=== PATIENT | male | born 1945 | race Caucasian/White ===

== ENCOUNTER 2020-03-26 12:08 | Inpatient (IN) | payer MEDICARE, SELFPAY ==
[2020-03-26] MEDS ORDERED: Piperacillin/Tazobactam 4.5 GM VIAL ONE (12:27)
[2020-03-26 12:31] LABS: #Lymphocytes 0.8 thou/uL (1.20-3.40); #Monocytes 1.6 thou/uL (0.11-0.59); #Neutrophils 13.9 thou/uL (1.40-6.50); %Eosinophils 0.1 % (0.0-10.0); %Lymphocytes 5.1 % (21.0-51.0); %Monocytes 9.7 % (0.0-10.0); %Neutrophils 85.1 % (42.0-75.0); Hemoglobin 14.2 g/dL (14.0-18.0); Mean Corpuscular Volume 93.9 fL (78.0-98.0); Mean Platelet Volume 8.8 fL (7.4-10.4); Platelet Count 245 thou/uL (130-400); RBC Distribution Width 12.6 % (11.5-14.5); Red Blood Cell (RBC) Count 4.74 mill/uL (4.70-6.10); White Blood Cell (WBC) Count 16.4 thou/uL (4.8-10.8)
[2020-03-26 12:39] LABS: INR-International Normal Ratio 1.3; PTT 28.7 sec (22.9-36.1)
--- NOTE | 2020-03-26 12:45 | RAD ---
CHEST 1 VIEW PORTABLE: Date: 03/26/2020 HISTORY: Fever. FINDINGS: Heart size is upper range of normal. Mild increased markings are noted bilaterally with some increase d density in the left retrocardiac region, although this appears to be stable dating back to 04/14/20 19 study. No new confluent pneumonia or overt edema. IMPRESSION: Stable blunting of the left costophrenic angle and increased density in the left retrocardiac region with borderline cardiomegaly without overt acute process. Atherosclerosis of aorta. POS: OFF
[2020-03-26] MEDS ORDERED: Vancomycin 1 GM/200 ML BAG ONE (12:52)
[2020-03-26 13:00] LABS: ALT (SGPT) 59 U/L (8-55); AST (SGOT) 66 U/L (5-34); Acetaminophen Less than 6.0 mcg/mL (10.0-30.0); Albumin 3.3 g/dL (3.4-4.8); Alcohol Less than 10 mg/dL (Less than 10); Alkaline Phosphatase 102 U/L (40-110); Anion Gap 24 mmol/L (10-20); BUN (Urea Nitrogen) 107 mg/dL (8.4-25.7); Bilirubin, Total 0.7 mg/dL (0.2-1.2); CK (CPK) 1658 U/L (30-200); Calc. Creatinine Clearance 0 mL/min (70-130); Calcium 8.8 mg/dL (7.8-10.44); Carbon Dioxide 12 mmol/L (23-31); Chloride 108 mmol/L (98-107); Estimated GFR-MDRD 11; Globulin 4.1 g/dL (2.4-3.5); Glucose 391 mg/dL (83-110); Magnesium 1.7 mg/dL (1.6-2.6); Potassium 5.5 mmol/L (3.5-5.1); Protein, Total 7.4 g/dL (5.8-8.1); Salicylate Less than 8.0 mg/dL (15.0-30.0); Sodium 138 mmol/L (136-145)
[2020-03-26] MEDS ORDERED: Calcium Chloride 1 GM/10 ML Abboject SYRINGE ONE ×2 (13:27→13:30)
[2020-03-26] MEDS ORDERED: Sodium Bicarb 50 MEQ/50 ML Abboject 8.4% SYRINGE ONE (13:29)
[2020-03-26 13:32] LABS: Bacteria/HPF 4+ HPF (None Seen); Bilirubin Negative (Negative); Blood, Urine 2+ (Negative); Clarity Turbid (Clear); Glucose, Urine (Dipstick) 100 mg/dL (Negative); Ketone, Urine Negative (Negative); Leukocyte 500 Leu/uL (Negative); Nitrite Negative (Negative); Protein, Urine (Dipstick) 600 mg/dL (Neg-Trace); Specific Gravity, Urine 1.018 (1.002-1.036); Squamous Epithelial 0-3 HPF (0-3); Urobilinogen Normal mg/dL (Less than 2); WBC/HPF Greater than 50 HPF (0-3)
[2020-03-26 13:46] LABS: Amphetamine Not Detected (NotDetected); Barbiturates Screen Not Detected (NotDetected); Benzodiazepine Screen Not Detected (NotDetected); Cocaine Metabolite Screen Not Detected (NotDetected); Medtox Control Line Valid? VALID (VALID); Medtox Reader # READER 1; Methadone Not Detected (NotDetected); Methamphetamine Not Detected (NotDetected); Opiate Screen Not Detected (NotDetected); Oxycodone Screen Not Detected (NotDetected); Phencyclidine (PCP) Not Detected (NotDetected); THC/Cannabinoid Screen Not Detected (NotDetected); Tricyclic Screen Not Detected (NotDetected)
[2020-03-26 14:07] LABS: CKMB 14.4 ng/mL (0-6.6)
--- NOTE | 2020-03-26 14:13 | CT ---
BRAIN CT WITHOUT IV CONTRAST: History: Unresponsive, altered mental status. FINDINGS: There is some bilateral atrophy and chronic white matter ischemic change. No focal mass or midline sh ift. No intra or extraaxial hemorrhage. IMPRESSION: No acute intracranial process. No mass or bleed. POS: OFF
--- NOTE | 2020-03-26 14:17 | CT ---
CERVICAL SPINE CT SCAN WITHOUT IV CONTRAST: History: Slid out of chair, injury. FINDINGS: Thyroid gland is somewhat nodular and enlarged, larger on the right side, with one fairly densely lianne cified nodule. Extensive multilevel cervical spondylosis, particularly at C5-6 and C6-7. No evidence for acute fracture or facet dislocation. IMPRESSION: Fairly extensive cervical spine spondylosis. Heterogeneous thyroid gland enlargement with some nodula rity including a right sided calcified nodule. POS: OFF
[2020-03-26] MEDS ORDERED: Acetaminophen 650 MG Suppository ONE (14:26)
--- NOTE | 2020-03-26 14:46 | CT ---
ABDOMEN AND PELVIC CT SCAN WITHOUT IV CONTRAST: History: Abdominal pain. Comparison: 04-14-19 FINDINGS: There is fairly marked motion artifact which lowers the sensitivity of this study. Minimal bilateral posterior pleural thickening and pleural based linear and parenchymal changes, although improved from the prior exam of 04-14-19. Status post cholecystectomy. The liver appears unremarkable. Stable approx imately 1.7 cm cyst adjacent to the uncinated process of the pancreas. Spleen is unremarkable. NO tristan dence for significant free intraperitoneal fluid or retroperitoneal hematoma. Multiple bilateral lisbeth l hypodense masses, favored to be cysts, overall stable from the prior exam. Mild gas and fluid diste ntion of the cecum and right colon but no evidence for obstruction. Scattered colonic diverticulosis, particularly in the sigmoid colon. There is the suggestion of some wall thickening of the lower rect um, nonspecific. This could potentially represent some proctitis or, less likely, neoplastic change. Severe lumbar spine spondylosis. IMPRESSION: Evidence for some diffuse rectal wall probable thickening, nonspecific, with inflammatory/infectious/ less likely neoplastic process being considered. Stable probable bilateral renal cysts and stable sma ll cyst adjacent to the uncinated process. Colonic diverticulosis without acute diverticulitis. Sever e lumbar spine spondylosis. Other findings as above. POS: OFF
[2020-03-26 15:00] LABS: SARS-CoV-2 NAA Rapid Test Not Detected (NotDetected)
[2020-03-26] MEDS ORDERED: Enoxaparin Sodium 40 MG/0.4 ML SYRINGE ONE (15:30)
[2020-03-26] MEDS ORDERED: Enoxaparin Sodium 80 MG/0.8 ML SYRINGE ONE (15:30)
[2020-03-26 16:15] LABS: Lactic Acid 2.3 mmol/L (0.5-2.2)
--- NOTE | 2020-03-26 16:58 | PDOC.FPRHP ---
- History of Present Illness Chief Complaint: unresponsive History of Present Illness: 74 y/o M with PMHx DM, HTN and PSHx L STEFANIE brought to ED by EMS after being found down at home. His full medical history is unknown as he has few records at our facility and is unable to answer many questions due to current medical conditions. Per report, he was found by his circular saw operator this morning and appeared to have slumped out of his chair, was covered in feces, and was not responsive. His last known normal was 2 days ago when his circular saw operator dropped off some groceries. He has an mPOA who reported to the ED that he recently left a physical rehab facility; they expressed concerns that he is not appropriately able to care for himself at home. He answers few yes or no questions. Reports pain over his sacrum. Denies any chest pain or SOB. Unable to elicit further ROS due to patient condition. ED Course: Imaging: CT head without hemorrhage, CT neck without acute injury, CXR bilateral small pleural effusions, CT abd/pelvis without contrast thickened bladder and thickened rectum with colitis. EKG without ST changes. Labs: UA 4+ bacteria, Cr 4.98, K 5.5, Trop 1.75, BUN 107 Meds: s/p 30mg/kg NS (approx 4L NS), therapeutic lovenox, vanc, zosyn, tylenol, sodium bicarb, calcium chloride - Allergies/Adverse Reactions Allergies Allergy/AdvReac Type Severity Reaction Status Date / Time No Known Allergies Allergy Unverified 03/26/20 17:53 - History Incomplete history due to mental status. PMHx: DM, HTN PSHx: Nakul WATTS FHx: unknown Social: unknown - Review of Systems ROS unobtainable: due to mental status Respiratory: denies: shortness of breath Cardiovascular: denies: chest pain - Vital signs BP: 187/57 HR: 80 RR: 30 Tmax: 100.7F Pox: 97% on RA Wt: 117 kg - Physical Exam -Constitutional: in mild distress due to pain with diaper change; sleepy but arousable, HEENT: normocephalic and atraumatic -HEENT: unable to follow commands for EOM; R pupil reactive to light, unable to open L eye due to crusted discharge. dry mucous membranes. Neck: supple Heart: RRR, no edema -Heart: 2/6 systolic murmur Lungs: no respiratory distress -Lungs: clear to auscultation from anterior listening posts, unable to assess posteriorly due to patient habitus and mental status Abdomen: soft, bowel sounds present -Abdomen: obese, mild diffuse tenderness -Musculoskeletal: Left BKA, no gross deformities noted -Neurological: no obvious focal deficits although only following some commands -Skin: macular rash over trunk and arms with some punctate areas, c/w bed bugs; sacral wound with clean, dry dressing placed by ED staff -Psychiatric: unable to assess due to current mental status FMR H&P: Results - Labs Result Diagrams: 03/26/20 12:19 03/26/20 19:30 Lab results: WBC 16.4 thou/uL (4.8-10.8) H 03/26/20 12:19 Hgb 14.2 g/dL (14.0-18.0) 03/26/20 12:19 Hct 44.5 % (42.0-52.0) 03/26/20 12:19 MCV 93.9 fL (78.0-98.0) 03/26/20 12:19 Plt Count 245 thou/uL (130-400) 03/26/20 12:19 Neutrophils % 85.1 % (42.0-75.0) H 03/26/20 12:19 Sodium 138 mmol/L (136-145) 03/26/20 12:19 Potassium 5.5 mmol/L (3.5-5.1) H 03/26/20 12:19 Chloride 108 mmol/L (98-107) H 03/26/20 12:19 Carbon Dioxide 12 mmol/L (23-31) L 03/26/20 12:19 BUN 107 mg/dL (8.4-25.7) H 03/26/20 12:19 Creatinine 4.98 mg/dL (0.7-1.3) H 03/26/20 12:19 Glucose 391 mg/dL (83-110) H 03/26/20 12:19 Lactic Acid 2.3 mmol/L (0.5-2.2) H 03/26/20 15:51 Calcium 8.8 mg/dL (7.8-10.44) 03/26/20 12:19 Total Bilirubin 0.7 mg/dL (0.2-1.2) 03/26/20 12:19 AST 66 U/L (5-34) H 03/26/20 12:19 ALT 59 U/L (8-55) H 03/26/20 12:19 Alkaline Phosphatase 102 U/L (40-110) 03/26/20 12:19 Ammonia 37 umol/L (18-72) 03/26/20 12:37 Creatine Kinase 1658 U/L (30-200) H 03/26/20 12:19 CK-MB (CK-2) 14.4 ng/mL (0-6.6) H* 03/26/20 12:19 Serum Total Protein 7.4 g/dL (5.8-8.1) 03/26/20 12: Albumin 3.3 g/dL (3.4-4.8) L 03/26/20 12:19 Lipase 12 U/L (8-78) 03/26/20 12:19 Urine Ketones Negative mg/dL (Negative) 03/26/20 13:08 Urine Blood 2+ (Negative) A 03/26/20 13:08 Urine Nitrite Negative (Negative) 03/26/20 13:08 Ur Leukocyte Esterase 500 Nury/uL (Negative) A 03/26/20 13:08 Urine RBC 4-6 HPF (0-3) A 03/26/20 13:08 Urine WBC Greater than 50 HPF (0-3) A 03/26/20 13:08 Ur Squamous Epith Cells 0-3 HPF (0-3) 03/26/20 13:08 Urine Bacteria 4+ HPF (None Seen) A 03/26/20 13:08 FMR H&P: A/P - Plan Sepsis 2/2 UTI vs infected sacral skin wound WBC 16.4, Tmax 100.7F, HR 80, RR 30, BP 187/57. Initial lactate 4.2. UA with 4+ bacteria, greater than 50 WBC. Severe skin breakdown without ulceration on sacrum. Rapid COVID negative. - s/p fluid resuscitation in the ED with 30 mg/kg NS (approx 4L) - s/p vanc, zosyn in the ED - abx: vanc, cefepime - f/u blood cultures - trending lactate - wound care consulted Rhabdomyolysis Unknown down time, last known normal 2 days ago. CK 1648, K 5.5, Cr 4.98. 2+ blood on UA although only 4-6 RBCs, may have myoglobin in urine. - s/p fluid resuscitation in ED as above - will continue mIVF LR at 120ml/hr - trend CK Altered Mental Status Mostly likely 2/2 sepsis although ischemic stroke is a possibility. No focal deficits noted on exam, although patient not able to fully cooperate. - will treat sepsis as above - permissive hypertension - ordered bedside swallow, NPO until completed - consider MRI in AM Hyperkalemia 5.5 prior to fluid resuscitation. Likely 2/2 rhabdomyolysis. S/P calcium chloride in ED. No peaked T waves on EKG. - repeat BMP now - if K remains elevated after fluids, will need further treatment - continue to monitor daily BMP CA Cr 4.98, baseline appears to be around 1.5 in 04/2019. Likely due to sepsis and rhabdomyolysis. - s/p fluid resuscitation in ED - will re-check BMP now - if Cr not improving, consult nephrology to eval possible need for dialysis - wadsworth placed, strict I&O Elevated Troponin Troponin 1.75. Suspect due to sepsis and decreased clearance with CA. - trend troponin - s/p therapeutic lovenox x 1 in ED - will give ASA Hypertension Hypertensive today. Automatic cuff giving SBP >200 but manual recheck reveals systolic BP in 180s. - permissive HTN due to possible stroke as above Type II DM Poorly controlled. Glucose 391 today. No ketones in urine. Low suspicion for DKA /HHS. - will start moderate SSI - continue to monitor glycemic status Colitis Found down, covered with stool. Unclear if diarrhea, but colitis noted on CT abd /pelvis. - check C diff toxin Bug Bites Diffuse rash on trunk and arms appears consistent with bed bugs - Permethrin cream to trunk and arms tonight Leukocytosis WBC 16.4. Likely 2/2 sepsis. - trend AM CBC Dispo: LOS likely >48 DVT ppx: will start heparin tomorrow, s/p therapeutic lovenox in the ED Diet: NPO. May start heart healthy, carb consistent if swallow passed. IVF: LR @ 120ml/hr FMR H&P: Upper Level - Plan Date/Time: 03/26/20 3746 IElder DO, have evaluated this patient and agree with findings/plan as outlined by wildlife biology internship resident. Pertinent changes/additions are listed here. 74-year-old male presents unresponsive from home He was found by home health today on his floor. They report he was not responsive at that time. Upon arrival to the emergency department he was given 30 mill per kilogram bolus, labs obtained and started on broad-spectrum antibiotics. Currently he is AOx2-3, denies any pain or other complaints. He has b/l injected conjunctiva, with purulence, mild NATY and CTAB, abdomen non- distended but TTP. Mild LE edema, L bka, R great toe with skin breakdown. Diffuse petechial rash. Blood pressures have remained stable or even elevated. CT head within normal limits, Abdomen/pelvis reveals distended bladder and distal colon. Chest x-ray was within normal limits and CT C-spine was normal as well. Laboratory findings significant for an elevated white blood cell count, elevated troponin at 1.7, elevated CK, elevated creatinine, and LA, K was 5.5. EKG reveals type 1 av block, no ST elevation. Primary diagnosis sepsis secondary to UTI. Patient has been adequately fluid resuscitated at this point, will begin appropriate broad-spectrum antibiotics, await blood/urine culture results. Repeat LA, obtain procal and trend. This is likely the cause of his metabolic acidosis. NSTEMI type 2 likely the cause of his elevated troponin. Will discontinue Lovenox and continue to trend trop. Rhabdomyolysis: trend creatinine kinase, begin maintenance fluid Will repeat BMP in four hours to monitor hyperkalemia and CA on CKDIII, renal dose for all medications. Consider nephrology consult if kidney function dose not improve Hypertensive urgency and AMS cause consideration for CVA vs TIA, allow for permissive HTN. Consider MRI in AM. Give ASA. NPO pending BSS Treat hyperglycemia with SSI, consider Lantus in AM with approved diet. Attempt to contact family in regards to his past medical history. Will admit to stroke with tele monitoring. Expected length of stay is greater than 48 hours. Addendum - Attending - Attending Attestation Date/Time: 03/26/202056 I personally evaluated the patient and discussed the management with Dr. Avelar I agree with the History, Examination, Assessment and Plan documented above with any addition or exceptions noted below.
[2020-03-26] MEDS ORDERED: Acetaminophen 325 MG TAB PO PRN (17:54)
[2020-03-26] MEDS ORDERED: Sodium Chloride 0.9% 1,000 ML IV SCH (17:54)
[2020-03-26] MEDS ORDERED: Ondansetron PF 4 MG/2 ML Vial IVP PRN (17:54)
[2020-03-26] MEDS ORDERED: Ondansetron ODT 4 MG TAB SL PRN (17:54)
[2020-03-26] MEDS ORDERED: Permethrin 5% Cream 60 GM TUBE TOP SCH (18:00)
[2020-03-26] MEDS ORDERED: Aspirin 325 MG TAB PO SCH (18:15)
[2020-03-26] MEDS ORDERED: Dextrose 5% in Water 1,000 ML IV PRN (19:21)
[2020-03-26] MEDS ORDERED: Dextrose 50% Abboject 50 ML SYRINGE SLOW IVP PRN (19:21)
[2020-03-26] MEDS ORDERED: Cefepime 2 GM in Sodium Chloride 0.9% 100 ML IVPB SCH (19:30)
[2020-03-26 19:56] LABS: Anion Gap 17 mmol/L (10-20); BUN (Urea Nitrogen) 104 mg/dL (8.4-25.7); Calc. Creatinine Clearance 25 mL/min (70-130); Calcium 8.2 mg/dL (7.8-10.44); Carbon Dioxide 19 mmol/L (23-31); Chloride 111 mmol/L (98-107); Estimated GFR-MDRD 13; Glucose 337 mg/dL (83-110); Potassium 4.9 mmol/L (3.5-5.1); Sodium 142 mmol/L (136-145)
[2020-03-26] MEDS: Lactated Ringer's 1,000 ML IV SCH (20:08)
[2020-03-26 21:38] LABS: Troponin I 3.341 ng/mL (< 0.028)
[2020-03-26 22:48] LABS: CKMB 23.9 ng/mL (0-6.6)
[2020-03-26] MEDS ORDERED: Nitroglycerin 0.4 MG TAB (25 Tab Bottle) SL PRN (22:53)
[2020-03-26] MEDS ORDERED: Heparin 10,000 UNITS/ 10 ML VIAL SLOW IVP SCH (23:00)
[2020-03-26] MEDS ORDERED: Heparin 25,000 units/D5W 500 ML IVPB SCH (23:00)
[2020-03-26 23:14] LABS: Platelet Count 195 thou/uL (130-400)
[2020-03-27 02:32] LABS: Troponin I 4.924 ng/mL (< 0.028)
[2020-03-27] MEDS: Lactated Ringer's 1,000 ML IV SCH ×3 (03:09→13:12)
[2020-03-27] MEDS ORDERED: Aspirin 325 MG TAB PO SCH (03:15)
[2020-03-27] MEDS ORDERED: Atorvastatin Calcium 40 MG TAB PO SCH (03:15)
[2020-03-27] MEDS: Heparin 10,000 UNITS/ 10 ML VIAL SLOW IVP SCH ×3 (03:55→21:10)
[2020-03-27] MEDS: Heparin 25,000 units/D5W 500 ML IVPB SCH ×2 (03:56→22:18)
--- NOTE | 2020-03-27 04:08 | PDOC.BPN ---
<Sandi Keane - Last Filed: 03/27/20 04:04> - Brief Progress Note Called for critical troponins rising 3.34 > 4.9. EKG obtained ~2100 and again at ~00:00 after tele monitors showed possible ST elevation. No ST elevation appreciated, but new T wave inversions in leads I, V2-V6. Patient asx at this time, denies chest pain, appears clinically stable. Will start therapeutic heparin at 0400 since received a dose of th. lovenox yesterday evening. High likelihood patient is having NSTEMI. Gave ASA and started statin. At this time will continue trending troponin and tele monitoring. Consider cardiology consult in AM; however, unlikely to undergo cardiac catheterization while septic. Will continue therapeutic anticoagulation, nitro for chest pain. <Anuj Hooper - Last Filed: 03/27/20 07:56> - Brief Progress Note EKG with new BBB and prolonging Qtc noted
[2020-03-27 05:24] LABS: Anion Gap 16 mmol/L (10-20); BUN (Urea Nitrogen) 99 mg/dL (8.4-25.7); CK (CPK) 1180 U/L (30-200); Calc. Creatinine Clearance 30 mL/min (70-130); Calcium 8.3 mg/dL (7.8-10.44); Carbon Dioxide 20 mmol/L (23-31); Chloride 114 mmol/L (98-107); Estimated GFR-MDRD 16; Glucose 260 mg/dL (83-110); Potassium 4.8 mmol/L (3.5-5.1); Sodium 145 mmol/L (136-145)
[2020-03-27 05:48] LABS: Band 11 % (5-11); Hemoglobin 13.3 g/dL (14.0-18.0); Lymphocytes 9 % (21-51); MDiff Complete? YES; Mean Corpuscular Hemoglobin 28.8 pg (27.0-31.0); Mean Corpuscular Volume 92.9 fL (78.0-98.0); Mean Platelet Volume 8.2 fL (7.4-10.4); Monocytes 12 % (0-10); Neutrophil 67 % (42-75); Platelet Count 205 thou/uL (130-400); Platelet Morphology Comment Appears Adequate; RBC Distribution Width 12.5 % (11.5-14.5); Reactive Lymphocytes 1 % (0-10); Red Blood Cell (RBC) Count 4.62 mill/uL (4.70-6.10); White Blood Cell (WBC) Count 20.5 thou/uL (4.8-10.8)
--- NOTE | 2020-03-27 06:31 | PDOC.FM ---
- Subjective Subjective: Overnight troponins continued to rise. Patient has continued to deny any chest pain throughout this admission, including this AM. He reports he is mildly SOB. Denies any diaphoresis. This morning, he is completely awake and able to answer questions, which is a big change from yesterday. He does not remember having any kind of fall at home. He reports that he was in an assisted living facility approximately 2 months ago, but he has since returned to home with the help of his friend Gertrude who is his rn burn. He is complaining of back pain this morning, which is chronic and unchanged. He does not have any other complaints this morning, other than detailed above. He also tells me that he sees a pressroom worker at [facility] who he last saw approximately 2 weeks ago and who wanted him to f/u for a AWA soon. - Objective Vital Signs & Weight: Vital Signs (12 hours) Temp Pulse Resp BP Pulse Ox 03/27/20 03:01 98.0 F 68 20 151/78 H 99 03/27/20 01:21 100 03/26/20 23:21 97.6 F 64 17 182/74 H 03/26/20 20:00 100 03/26/20 19:21 98.7 F 65 20 158/70 H 100 Weight Weight 118.841 kg Result Diagrams: 03/27/20 04:50 03/27/20 04:50 EKG Reviewed by me: Yes (prolonged QTc, RBBB, T wave inversions) Phys Exam - Physical Examination Constitutional: NAD HEENT: PERRLA tacky mucous membranes Neck: supple Respiratory: no wheezing, no rhonchi rales bilateral bases Cardiovascular: RRR 2/6 systolic murmur Gastrointestinal: soft, no distention, positive bowel sounds mild tenderness RLQ, no rebound tenderness, negative Rovsing Musculoskeletal: no edema pulses present but very difficult to palpate Neurological: non-focal, moves all 4 limbs Psychiatric: normal affect, A&O x 3 Deviation from normal: rash c/w diffuse bug bites unchanged Dx/Plan - Plan Plan: Sepsis 2/2 UTI vs infected sacral skin wound WBC 16.4, Tmax 100.7F, HR 80, RR 30, BP 187/57 on admission. Initial lactate 4.2. UA with 4+ bacteria, greater than 50 WBC. Severe skin breakdown without ulceration on sacrum. Rapid COVID negative. Lactate now trending down. Intermediate procalcitonin stable at 0.6. - Clinically improving today - s/p fluid resuscitation in the ED with 30 mg/kg NS (approx 4L) - discontinued vanc and cefepime today; after seeing wound photos, low suspicion for sepsis due to MRSA and favor urinary source; will start rocephin today for UTI complicated by sepsis - f/u blood cultures - f/u urine cx, will de-escalate to oral abx pending results - wound care consulted Elevated Troponin: NSTEMI vs Sepsis vs Decreased Renal Troponin elevated at 1.75 on admission; was suspected most likely due to sepsis and decreased renal clearance, therapeutic lovenox administered in ED and ASA given on admission to the floor; continued to trend troponin overnight and continued to rise to 3.34 and then 4.92. He developed EKG changes including T wave inversions, RBBB, prolonged QTc, although he continues to deny chest pain. He was given ASA and started on therapeutic heparin and statin. - trend troponin - continue therapeutic heparin, statin, asa - cardiology, Dr. Trevino, consulted this AM, appreciate recs Rhabdomyolysis Unknown down time, last known normal 2 days ago. CK 1648, K 5.5, Cr 4.98. 2+ blood on UA although only 4-6 RBCs, may have myoglobin in urine upon admission. - s/p fluid resuscitation in ED as above - increased IVF to 160ml/hr for more aggressive tx of rhabdo; few rales, no increased O2 requirement, will monitor respiratory status closely and adjust IVF as needed - CK downtrending, will continue to monitor Altered Mental Status Mostly likely 2/2 sepsis. Initial consideration for ischemic stroke but patient is alert and non-focal on exam today. - will treat sepsis as above - no need for extensive stroke work up - bedside swallow still pending Hyperkalemia 5.5 prior to fluid resuscitation. Likely 2/2 rhabdomyolysis. S/P calcium chloride in ED. No peaked T waves on EKG. K corrected with IVF resuscitation, CaCl. - continue to monitor daily BMP CA Cr 4.98, baseline appears to be around 1.5 in 04/2019. Likely due to sepsis and rhabdomyolysis. Improving with fluid resuscitation. - s/p fluid resuscitation in ED - making urine, ok to DC wadsworth today - continue strict I/O Hypertension Hypertensive today. Automatic cuff giving SBP >200 but manual recheck reveals systolic BP in 180s. Initially permissive hypertension due to possible ischemic stroke. - stable with SBP in 150s today - will add anti-hypertensives when home medications are reconciled Type II DM Poorly controlled. Glucose 391 on admission No ketones in urine. Low suspicion for DKA/HHS. - will start moderate SSI - continue to monitor glycemic status - reconcile home meds, will likely start basal insulin Colitis Found down, covered with stool. Unclear if diarrhea, but colitis noted on CT abd /pelvis. - C diff Ag positive although toxin still pending - if C diff toxin positive, keep enteric precautions and tx with oral vancomycin - if C diff toxin negative, no need for tx and may DC enteric precautions Bug Bites Diffuse rash on trunk and arms appears consistent with bed bugs - Permethrin cream to trunk and arms tonight Leukocytosis WBC 16.4. Likely 2/2 sepsis. - WBC increased to 20 - trend AM CBC Dispo: LOS likely >48 DVT ppx: therapeutic heparin Diet: NPO. May start heart healthy, carb consistent if swallow passed. IVF: LR @ 160ml/hr Addendum - Attending - Attending Attestation Date/Time: 03/27/20 1222 I personally evaluated the patient and discussed the management with Dr. Avelar I agree with the History, Examination, Assessment and Plan documented above with any addition or exceptions noted below. Patient much more alert and responsive today relates additional history he was [facility] he can not eloborate further. RFT improved EKG with new RBBB and troponins up with QTc prolonged now on EKG. Cardiology has been consulted and patient remains on therapeutic heparin. Continue hydration given sepsis CA on prexisting CKD and rhadbomylosis. C dificile toxin pending CT with Colitis continue contact precautions and will deescalate ABX pending culture results. PO vancomycin 125 qid x 10 days pending C DIF toxin report.
[2020-03-27] MEDS ORDERED: Heparin 5,000 UNITS/ML VIAL SC SCH (09:00)
[2020-03-27] MEDS ORDERED: Prevnar 13-Val Conj/PF 0.5 ML SYRINGE IM ONE (09:00)
[2020-03-27 09:02] LABS: Troponin I 4.997 ng/mL (< 0.028)
[2020-03-27] MEDS: cefTRIAXone\\ROCEPHIN 1 GM in Sodium Chloride 0.9% 100 ML IVPB SCH (09:19)
[2020-03-27] MEDS ORDERED: Vancomycin 1.5 GRAM/300 ML BAG 1.5 GM in Premix Bag 1 BAG IVPB SCH (13:00)
[2020-03-27 13:24] LABS: Vancomycin, Random 7.1 ug/mL (See Comment)
--- NOTE | 2020-03-27 14:27 | CON ---
DATE OF CONSULTATION: REASON FOR CONSULTATION: Elevated troponin, abnormal EKG. PRIMARY SENIOR SUPPORT ENGINEER: Dr. Yordy Flores. Please note, Mr. Vines does have two medical record numbers. HISTORY OF PRESENT ILLNESS: Mr. Vines is a 74-year-old gentleman, who recently was found down. He states it is unknown why he was down. He states he was down for up to 2 days. He initially had mental status changes, but now appears to be more lucid. No chest pain, pressure, or other associated symptoms. His troponin is slightly elevated. Initially, he was found to have normal sinus rhythm with right bundle-branch block. His followup EKG this morning did show inverted T-waves. His creatinine also continues to be elevated. He is currently pain free. No chest pain or pressure noted. PAST MEDICAL HISTORY: Mild to moderate aortic stenosis, moderate aortic insufficiency, diabetes mellitus, PVD, status post left BKA, hyperlipidemia, hypertension, previous tobacco abuse, hypothyroidism, ileus, chronic kidney disease. ALLERGIES: QUINAPRIL. SOCIAL HISTORY: No current tobacco or alcohol use. Currently lives alone. REVIEW OF SYSTEMS: A 10-point review of systems is reviewed as above, otherwise negative. HOME MEDICATIONS: Currently unknown. PHYSICAL EXAMINATION: GENERAL: Patient is a pleasant male, who is in no acute distress. The patient appears their stated age. VITAL SIGNS: Blood pressure 151/78, pulse 68, temperature 98. NEUROLOGIC: The patient is alert and oriented x3 with no focal neurologic deficits. HEENT: Sclerae without icterus. Mouth has moist mucous membranes with normal pallor. NECK: No JVD. Carotid upstroke brisk. No bruits bilaterally. LUNGS: Clear to auscultation with unlabored respirations. BACK: No scoliosis or kyphosis. CARDIAC: Regular rate and rhythm with 2/6 systolic ejection murmur heard best at the left lower sternal border. ABDOMEN: Soft, nontender, nondistended. No peritoneal signs present. No hepatosplenomegaly. No abnormal striae. EXTREMITIES: Left BKA. SKIN: No gross abnormalities. PERTINENT LABORATORY DATA: Hemoglobin 13.3, hematocrit 42.9, white blood cell count 20.5. Creatinine 3.66, which is down from 4.4. Peak troponin 4.99 and appears to have stabilized. CK of 1180. EKG as above. IMPRESSION: 1. Elevated troponin. 2. Abnormal EKG. 3. Mild to moderate aortic stenosis. 4. Peripheral vascular disease. RECOMMENDATIONS: Mr. Vines certainly has had dynamic changes noted while in the hospital. At this point, we will continue with conservative therapy. He has no current symptoms suggesting angina. No significant shortness of breath or chest pain or pressure. We would recommend an echo to reassess his aortic valve. He was last seen by Dr. Yordy Flores a year and a half ago, where he did have [id number] aortic stenosis and moderate aortic insufficiency. If his valve has worsened, this maybe the precipitating cause to his possible syncopal event. May need to have disposition from a coronary standpoint prior to discharge. We would like to continue to see his creatinine improved. We will continue with IV fluids. Job ID: [id number]
[2020-03-27] MEDS: Vancomycin HCl 25 MG/ML Oral PO SCH (19:26)
[2020-03-27] MEDS ORDERED: Cefepime 1 GM in Sodium Chloride 0.9% 100 ML IVPB SCH (20:00)
[2020-03-27] MEDS: Atorvastatin Calcium 40 MG TAB PO SCH (21:16)
[2020-03-27] MEDS: Carvedilol 3.125 MG TAB PO SCH (21:16)
[2020-03-27] MEDS: HumaLOG 300 UNITS/3 ML VIAL SC PRN (21:17)
[2020-03-28] MEDS: Vancomycin HCl 25 MG/ML Oral PO SCH ×4 (00:17→18:38)
[2020-03-28] MEDS ORDERED: Acetaminophen 325 MG TAB PO PRN (01:04)
[2020-03-28 02:30] LABS: PTT 154.1 sec (22.9-36.1)
[2020-03-28] MEDS ORDERED: Acetaminophen 500 MG TAB PO SCH (02:30)
[2020-03-28 04:46] LABS: #Eosinphils 0.4 thou/uL (0.0-0.7); #Lymphocytes 2.4 thou/uL (1.20-3.40); #Monocytes 1.9 thou/uL (0.11-0.59); %Basophils 0.3 % (0.0-1.0); %Eosinophils 2.6 % (0.0-10.0); %Lymphocytes 16.2 % (21.0-51.0); %Monocytes 12.8 % (0.0-10.0); %Neutrophils 68.2 % (42.0-75.0); Hemoglobin 11.4 g/dL (14.0-18.0); Mean Corpuscular HGB CONC 31.9 g/dL (32.0-36.0); Mean Corpuscular Hemoglobin 29.5 pg (27.0-31.0); Mean Corpuscular Volume 92.6 fL (78.0-98.0); Mean Platelet Volume 8.5 fL (7.4-10.4); Platelet Count 184 thou/uL (130-400); RBC Distribution Width 12.2 % (11.5-14.5); Red Blood Cell (RBC) Count 3.87 mill/uL (4.70-6.10); White Blood Cell (WBC) Count 14.7 thou/uL (4.8-10.8)
[2020-03-28 05:28] LABS: ALT (SGPT) 32 U/L (8-55); AST (SGOT) 41 U/L (5-34); Albumin 2.2 g/dL (3.4-4.8); Alkaline Phosphatase 68 U/L (40-110); Anion Gap 14 mmol/L (10-20); BUN (Urea Nitrogen) 83 mg/dL (8.4-25.7); Bilirubin, Total 0.5 mg/dL (0.2-1.2); Calc. Creatinine Clearance 50 mL/min (70-130); Calcium 7.8 mg/dL (7.8-10.44); Carbon Dioxide 21 mmol/L (23-31); Chloride 109 mmol/L (98-107); Estimated GFR-MDRD 29; Glucose 170 mg/dL (83-110); Potassium 4.5 mmol/L (3.5-5.1); Protein, Total 5.2 g/dL (5.8-8.1); Sodium 139 mmol/L (136-145)
[2020-03-28] MEDS: Lactated Ringer's 1,000 ML IV SCH ×3 (08:22→12:02)
[2020-03-28] MEDS: Carvedilol 3.125 MG TAB PO SCH ×2 (08:24→20:42)
--- NOTE | 2020-03-28 09:09 | PDOC.FM ---
- Subjective Subjective: No acute overnight events. Reports feeling much better, continues to deny any chest pain or SOB. Would like to know when he can go home. Discussed that he will likely need placement before he can home and he is amenable to this. No new complaints. Continues to have back pain. - Objective Vital Signs & Weight: Vital Signs (12 hours) Temp Pulse Resp BP Pulse Ox 03/28/20 04:05 97.2 F L 52 L 20 156/66 H 100 03/28/20 00:58 100 Weight Weight 118.841 kg I&O: 03/27/20 03/28/20 03/29/20 06:59 06:59 06:59 Intake Total 680 Output Total 1500 Balance -820 Result Diagrams: 03/28/20 04:24 03/28/20 04:24 EKG Reviewed by me: Yes (tele: 1 deg AVB, BBB, rate 50-60, prolonged QT, few PVCs, one 2s pause) Phys Exam - Physical Examination Constitutional: NAD HEENT: moist MMs Respiratory: no wheezing, no rhonchi few rales bilateral bases regular rhythm, bradycardia, systolic murmur Gastrointestinal: soft, non-tender, positive bowel sounds hyperactive bowel sounds Musculoskeletal: no edema pulses present but very difficult to palpate Neurological: non-focal, moves all 4 limbs Psychiatric: normal affect, A&O x 3 Deviation from normal: diffuse macular rash on trunk, arms is improving Dx/Plan - Plan Plan: Sepsis 2/2 most likely UTI vs C diff colitis WBC 16.4, Tmax 100.7F, HR 80, RR 30, BP 187/57 on admission. Initial lactate 4.2. UA with 4+ bacteria, greater than 50 WBC. Severe skin breakdown without ulceration on sacrum. Rapid COVID negative. Lactate now trending down. Intermediate procalcitonin stable at 0.6. - Clinically improving today - s/p fluid resuscitation in the ED with 30 mg/kg NS (approx 4L) - discontinued vanc and cefepime; after seeing wound photos, low suspicion for sepsis due to MRSA and favor urinary source; started rocephin 03/27 for UTI complicated by sepsis - f/u blood cultures -- NGTD - urine cx with proteus mirabilus resistant to fluorquionlones and bactrim; will switch to PO abx today, omnicef - wound care consulted for skin wound Hypothermia 97.2 F this AM, most likely 2/2 sepsis. - continue to monitor - tx sepsis as above C difficile colitis Possibly a contributing factor to his sepsis which is now improving. Positive toxin result on 03/27. - started on oral vancomycin 125 mg QID, will need 10 total days of PO vanc - enteric precautions Bradycardia Noted on tele overnight and exam this AM. - continue to monitor - unclear if related to elevated troponins - cardiology following, appreciate any recommendations Elevated Troponin: NSTEMI vs Sepsis vs Decreased Renal Troponin elevated at 1.75 on admission; was suspected most likely due to sepsis and decreased renal clearance, therapeutic lovenox administered in ED and ASA given on admission to the floor; continued to trend troponin overnight and continued to rise to 3.34 and then 4.92. He developed EKG changes including T wave inversions, RBBB, prolonged QTc, although he continues to deny chest pain. He was given ASA and started on therapeutic heparin and statin. - trend troponin - continue therapeutic heparin, statin, asa - cardiology, Dr. Trevino, consulted this AM, appreciate recs -- conservative management at this time Rhabdomyolysis Unknown down time, last known normal 2 days ago. CK 1648, K 5.5, Cr 4.98. 2+ blood on UA although only 4-6 RBCs, may have myoglobin in urine upon admission. - s/p fluid resuscitation in ED as above - yesterday increased LR to 160ml/hr for aggressive treatment but given improving CK to 300s and continued improvement of Cr will decrease to 120ml/hr to avoid fluid overload - CK downtrending, will continue to monitor Altered Mental Status, resolved Mostly likely 2/2 sepsis. Initial consideration for ischemic stroke but patient is alert and non-focal on exam today. - will treat sepsis as above - no need for extensive stroke work up Hyperkalemia 5.5 prior to fluid resuscitation. Likely 2/2 rhabdomyolysis. S/P calcium chloride in ED. No peaked T waves on EKG. K corrected with IVF resuscitation, CaCl. - continue to monitor daily BMP CA Cr 4.98, baseline appears to be around 1.5 in 04/2019. Likely due to sepsis and rhabdomyolysis. Improving with fluid resuscitation. - s/p fluid resuscitation in ED - continue strict I/O - Cr continues to improve, monitor BMP daily Hypertension Hypertensive today. Automatic cuff giving SBP >200 but manual recheck reveals systolic BP in 180s. Initially permissive hypertension due to possible ischemic stroke. - stable with SBP in 150s today - will add anti-hypertensives when home medications are reconciled Type II DM Poorly controlled. Glucose 391 on admission No ketones in urine. Low suspicion for DKA/HHS. - will start moderate SSI - continue to monitor glycemic status - reconcile home meds, will likely start basal insulin Bug Bites Diffuse rash on trunk and arms appears consistent with bed bugs vs scabies - Permethrin cream to trunk and arms tonight Leukocytosis, improving Initial WBC 16.4. Likely 2/2 sepsis. - down trending - trend AM CBC Dispo: LOS likely >48 DVT ppx: therapeutic heparin Diet: Heart healthy, carb consistent IVF: LR @ 120ml/hr Will likely need placement upon discharge. Addendum - Attending - Attending Attestation Date/Time: 03/28/20 1630 I personally evaluated the patient and discussed the management with the team. I agree with the History, Examination, Assessment and Plan documented above with any addition or exceptions noted below. Improved and in good spirits. Still with bilateral CVAT, no peritoneal signs or sig abd TTP. Continue vanc and rocphin. Hopeful omnicef tomorrow.
[2020-03-28] MEDS ORDERED: Lactated Ringer's 1,000 ML IV SCH (09:44)
[2020-03-28] MEDS: HumaLOG 300 UNITS/3 ML VIAL SC PRN ×2 (11:34→17:38)
[2020-03-28] MEDS: cefTRIAXone\\ROCEPHIN 1 GM in Sodium Chloride 0.9% 100 ML IVPB SCH (11:37)
[2020-03-28] MEDS: Acetaminophen 325 MG TAB PO PRN ×2 (11:37→21:49)
--- NOTE | 2020-03-28 17:07 | EKG ---
Test Reason : STAT Blood Pressure : / mmHG Vent. Rate : 063 BPM Atrial Rate : 063 BPM P-R Int : 230 ms QRS Dur : 154 ms QT Int : 530 ms P-R-T Axes : 030 029 214 degrees QTc Int : 542 ms Sinus rhythm with 1st degree A-V block Non-specific intra-ventricular conduction block joyce-lateral infarct unkown age Cannot rule out Inferior infarct , age undetermined Abnormal ECG No previous ECGs available Confirmed by DR. Fantasma BACA (3) on 03/28/2020 5:06:36 PM Referred By: CATERINA Confirmed By:DR. Fantasma BACA
--- NOTE | 2020-03-28 17:08 | EKG ---
Test Reason : STAT Blood Pressure : / mmHG Vent. Rate : 064 BPM Atrial Rate : 064 BPM P-R Int : 230 ms QRS Dur : 148 ms QT Int : 512 ms P-R-T Axes : 261 -65 173 degrees QTc Int : 528 ms Unusual P axis, possible ectopic atrial rhythm Right bundle branch block Left anterior fascicular block Bifascicular block Minimal voltage criteria for LVH, may be normal variant joyce- Lateral infarct (cited on or before 26-MAR-2020) T wave abnormality, consider inferior ischemia Abnormal ECG When compared with ECG of 26-MAR-2020 21:51, (Unconfirmed) Ectopic atrial rhythm has replaced Sinus rhythm (RBBB and left anterior fascicular block) has replaced Non-specific intra-ventricular conduction bloc k Confirmed by DR. Fantasma BACA (3) on 03/28/2020 5:07:48 PM Referred By: JOCELYN SPANN Confirmed By:DR. Fantasma BACA
[2020-03-28] MEDS: Atorvastatin Calcium 40 MG TAB PO SCH (20:42)
[2020-03-28] MEDS ORDERED: traMADol HCl 50 MG TAB PO SCH (22:15)
[2020-03-28 23:00] LABS: Hemoglobin 12.9 g/dL (14.0-18.0); Platelet Count 194 thou/uL (130-400)
[2020-03-29] MEDS: Vancomycin HCl 25 MG/ML Oral PO SCH ×4 (00:17→18:04)
[2020-03-29] MEDS: Heparin 25,000 units/D5W 500 ML IVPB SCH (00:20)
[2020-03-29 00:45] LABS: #Basophils 0.1 thou/uL (0.0-0.2); #Eosinphils 0.5 thou/uL (0.0-0.7); #Lymphocytes 2.2 thou/uL (1.20-3.40); #Monocytes 1.7 thou/uL (0.11-0.59); #Neutrophils 8.8 thou/uL (1.40-6.50); %Basophils 0.6 % (0.0-1.0); %Eosinophils 4.1 % (0.0-10.0); %Lymphocytes 16.7 % (21.0-51.0); %Monocytes 12.7 % (0.0-10.0); %Neutrophils 65.9 % (42.0-75.0); Hemoglobin 12.9 g/dL (14.0-18.0); Mean Corpuscular HGB CONC 32.2 g/dL (32.0-36.0); Mean Corpuscular Hemoglobin 29.8 pg (27.0-31.0); Mean Corpuscular Volume 92.7 fL (78.0-98.0); Mean Platelet Volume 8.6 fL (7.4-10.4); Platelet Count 187 thou/uL (130-400); RBC Distribution Width 12.3 % (11.5-14.5); Red Blood Cell (RBC) Count 4.32 mill/uL (4.70-6.10); White Blood Cell (WBC) Count 13.4 thou/uL (4.8-10.8)
[2020-03-29] MEDS: Heparin 10,000 UNITS/ 10 ML VIAL SLOW IVP SCH ×2 (01:16→18:04)
[2020-03-29 02:22] LABS: ALT (SGPT) 29 U/L (8-55); AST (SGOT) 34 U/L (5-34); Albumin 2.3 g/dL (3.4-4.8); Alkaline Phosphatase 75 U/L (40-110); Anion Gap 13 mmol/L (10-20); BUN (Urea Nitrogen) 63 mg/dL (8.4-25.7); CK (CPK) 233 U/L (30-200); Calc. Creatinine Clearance 62 mL/min (70-130); Carbon Dioxide 20 mmol/L (23-31); Chloride 109 mmol/L (98-107); Estimated GFR-MDRD 38; Globulin 3.2 g/dL (2.4-3.5); Glucose 210 mg/dL (83-110); Potassium 4.2 mmol/L (3.5-5.1); Protein, Total 5.5 g/dL (5.8-8.1); Sodium 138 mmol/L (136-145)
[2020-03-29 03:39] LABS: Bilirubin, Total 0.2 mg/dL (0.2-1.2)
[2020-03-29] MEDS: HumaLOG 300 UNITS/3 ML VIAL SC PRN ×3 (06:38→16:42)
[2020-03-29 06:47] LABS: PTT 127.2 sec (22.9-36.1)
--- NOTE | 2020-03-29 08:57 | PDOC.FM ---
Addendum entered and electronically signed by Ann Marie Avelar DO 03/29/20 12:51: Yesterday our team was informed that Mr. Vines has [employer] insurance, and would need to be transferred to a [facility] facility. We called the transfer center in the morning on 03/28/20 to initiate this transfer, requesting a telemetry bed due to current cardiac problems. Per the transfer center, this request was denied by the [facility] in [place] at 20:30 on 03/28/20. Original Note: - Subjective Subjective: 2 pauses on tele overnight, has been bradycardic. feeling tired this AM. otherwise no new complaints. no sob. no chest pain. - Objective Vital Signs & Weight: Vital Signs (12 hours) Temp Pulse Resp BP Pulse Ox 03/29/20 03:38 98.2 F 50 L 15 125/58 L 96 03/29/20 00:00 176/74 H Weight Admit Weight 118.841 kg Weight 125.146 kg I&O: 03/28/20 03/29/20 03/30/20 06:59 06:59 06:59 Intake Total 680 2136.7 Output Total 1500 Balance -820 2136.7 Result Diagrams: 03/29/20 00:36 03/29/20 00:36 Phys Exam - Physical Examination Constitutional: NAD appears fatigued HEENT: moist MMs Neck: supple Respiratory: no wheezing, no rales, no rhonchi, clear to auscultation bilateral bradycardia, systolic murmur Gastrointestinal: soft, non-tender, no distention, positive bowel sounds Musculoskeletal: no edema pulses difficult to palpate Neurological: non-focal, moves all 4 limbs CN 2-12 grossly intact Psychiatric: A&O x 3 Skin: no rash Dx/Plan - Plan Plan: Sepsis 2/2 most likely UTI vs C diff colitis WBC 16.4, Tmax 100.7F, HR 80, RR 30, BP 187/57 on admission. Initial lactate 4.2. UA with 4+ bacteria, greater than 50 WBC. Severe skin breakdown without ulceration on sacrum. Rapid COVID negative. Lactate now trending down. Intermediate procalcitonin stable at 0.6. - Clinically improving today - s/p fluid resuscitation in the ED with 30 mg/kg NS (approx 4L) - discontinued vanc and cefepime; after seeing wound photos, low suspicion for sepsis due to MRSA and favor urinary source; started rocephin 03/27 for UTI complicated by sepsis - f/u blood cultures -- NGTD - urine cx with proteus mirabilus resistant to fluorquionlones and bactrim; will switch to PO abx today, omnicef - wound care consulted for skin wound Bradycardia Noted on tele overnight and exam this AM. Now symptomatic with fatigue. - continue to monitor - unclear if related to elevated troponins - cardiology following, appreciate any recommendations - held BB this AM Back pain Unknown etiology, no apparent flank tenderness. - will check XR today to r/o compression fracture due to possible fall prior to admission - will give one time dose morphine prior to imaging so patient is able to tolerate Hypothermia 97.2 F this AM, most likely 2/2 sepsis. - continue to monitor - tx sepsis as above C difficile colitis Possibly a contributing factor to his sepsis which is now improving. Positive toxin result on 03/27. - started on oral vancomycin 125 mg QID, will need 10 total days of PO vanc - enteric precautions Elevated Troponin: NSTEMI vs Sepsis vs Decreased Renal Troponin elevated at 1.75 on admission; was suspected most likely due to sepsis and decreased renal clearance, therapeutic lovenox administered in ED and ASA given on admission to the floor; continued to trend troponin overnight and continued to rise to 3.34 and then 4.92. He developed EKG changes including T wave inversions, RBBB, prolonged QTc, although he continues to deny chest pain. He was given ASA and started on therapeutic heparin and statin. - trend troponin - continue therapeutic heparin, statin, asa - cardiology, Dr. Trevino, consulted this AM, appreciate recs -- conservative management at this time Rhabdomyolysis Unknown down time, last known normal 2 days ago. CK 1648, K 5.5, Cr 4.98. 2+ blood on UA although only 4-6 RBCs, may have myoglobin in urine upon admission. - s/p fluid resuscitation in ED as above - yesterday increased LR to 160ml/hr for aggressive treatment but given improving CK to 300s and continued improvement of Cr will decrease to 120ml/hr to avoid fluid overload - CK downtrending, will continue to monitor Altered Mental Status, resolved Mostly likely 2/2 sepsis. Initial consideration for ischemic stroke but patient is alert and non-focal on exam today. - will treat sepsis as above - no need for extensive stroke work up Hyperkalemia 5.5 prior to fluid resuscitation. Likely 2/2 rhabdomyolysis. S/P calcium chloride in ED. No peaked T waves on EKG. K corrected with IVF resuscitation, CaCl. - continue to monitor daily BMP CA Cr 4.98, baseline appears to be around 1.5 in 04/2019. Likely due to sepsis and rhabdomyolysis. Improving with fluid resuscitation. - s/p fluid resuscitation in ED - continue strict I/O - Cr continues to improve, monitor BMP daily Hypertension Hypertensive today. Automatic cuff giving SBP >200 but manual recheck reveals systolic BP in 180s. Initially permissive hypertension due to possible ischemic stroke. - stable with SBP in 150s today - will add anti-hypertensives when home medications are reconciled Type II DM Poorly controlled. Glucose 391 on admission No ketones in urine. Low suspicion for DKA/HHS. - will start moderate SSI - continue to monitor glycemic status - reconcile home meds, will likely start basal insulin Bug Bites Diffuse rash on trunk and arms appears consistent with bed bugs vs scabies - Permethrin cream to trunk and arms tonight Leukocytosis, improving Initial WBC 16.4. Likely 2/2 sepsis. - down trending - trend AM CBC Dispo: LOS likely >48 DVT ppx: therapeutic heparin Diet: Heart healthy, carb consistent IVF: LR @ 120ml/hr Will likely need placement upon discharge. Addendum - Attending - Attending Attestation Date/Time: 03/29/20 7864 I personally evaluated the patient and discussed the management with the team. I agree with the History, Examination, Assessment and Plan documented above with any addition or exceptions noted below. Sepsis 2/2 complicated UTI + c. diff colitis c/w NSTEMI (defer to cardiology concerning classification) -continue antibiotics -await final cards recs concerning , NSTEMI.
[2020-03-29] MEDS: cefTRIAXone\\ROCEPHIN 1 GM in Sodium Chloride 0.9% 100 ML IVPB SCH (09:14)
[2020-03-29] MEDS ORDERED: Morphine 4 MG/ML VIAL SLOW IVP SCH (11:30)
--- NOTE | 2020-03-29 11:41 | PQF ---
CLINICAL DOCUMENTATION CLARIFICATION FORM: Dear Dr. LUPE SMITH Date: 03-29-20 Please exercise your independent, professional judgment in responding to the clarification form. Clinical indicators are provided on the bottom of this form for your review. Please check appropriate box(es): [x ] Encephalopathy: Type: [ ] Acute [ ] Subacute [ ] Chronic Etiology: [ ] Hypertensive [ ] Metabolic [ ] Toxic [ x] Septic [ ] Other (please specify) [ ] Transient Alteration of Awareness [ ] Other diagnosis [ ] Unable to determine In addition, please specify: Present on Admission (POA): [ x ] Yes [ ] No [ ] Unable to determine For continuity of documentation, please document condition throughout progress notes and discharge summary. Thank You. To be completed by CDI/Coding staff for physician review: CLINICAL INDICATORS - SIGNS / SYMPTOMS / LABS / RESULTS AND LOCATION IN EMR: ER NOTES 03-26-20: UNRESPONSIVE, FOUND ON FLOOR, HIS GCS IS 9. HE IS RESPONSIVE TO PAINFUL STIMULI AND MAKES INAPPROPRIATE NOISES AND OCCASIONALLY SAYS THE WORD KNOW WHEN STIMULATED. ER DX 03-26-20: ALTERED MENTAL STATUS, ACUTE CYSTITIS H&P 03-26-20: ALTERED MENTAL STATUS MOST LIKELY 2/2 SEPSIS ALTHOUGH ISCHEMIC STROKE IS A POSSIBILITY, WILL TREAT SEPSIS, PERMISSIVE HTN, ORDERED BEDSIDE SWALLOW, NPO UNTIL COMPLETED, CONSIDER MRI IN AM RISK FACTORS / RESULTS AND LOCATION IN EMR: H&P 03-26-20: SEPSIS 2/2 UTI VS INFECTED SACRAL SKIN WOUND, RHABDOMYOLYSIS, AMS, HYPERKALEMIA, CA, COLITIS TREATMENTS / RESULTS AND LOCATION IN EMR: 03-27-20: VANCOMYCIN IV , ROCEPHIN H&P 03-26-20: ALTERED MENTAL STATUS MOST LIKELY 2/2 SEPSIS ALTHOUGH ISCHEMIC STROKE IS A POSSIBILITY, WILL TREAT SEPSIS, PERMISSIVE HTN, ORDERED BEDSIDE SWALLOW, NPO UNTIL COMPLETED, CONSIDER MRI IN AM CDS Signature: Patricia Gastonkeaton Phone #: [phone] Date/Time: 03-29-20 This is a permanent part of the Medical Record [facility]
--- NOTE | 2020-03-29 14:21 | RAD ---
EXAM: XR Thoracic Spine 3 V STANDARD DATE: 03/29/2020 11:31 AM INDICATION: History of fall COMPARISON: None. FINDING: There is moderate to severe multilevel spondylosis of the thoracic spine. Upper thoracic sp ine is not well-seen on the lateral projection due to the exam technique and the patient's body habitus. No definite acute fracture is evident on the AP projection. There are DISH like changes invo lving the mid thoracic spine. There is moderate cardiomegaly. There are cholecystectomy clips within the right upper quadrant. IMPRESSION:Some limitations to the exam. No definite acute osseous abnormality. If there remains clin ical concern for acute traumatic injury to the thoracic spine, a CT of the thoracic spine is recommended for additional evaluation.
--- NOTE | 2020-03-29 14:25 | RAD ---
EXAM: XR Lumbar Spine 2 Or 3 View PROVIDED CLINICAL HISTORY: Back pain after a fall. COMPARISON: CT abdomen on 03/26/2020. FINDINGS: 5 nonrib-bearing lumbar-type vertebral bodies are present. Multilevel osteophytes are present. There is narrowing of the intervertebral disc spaces at multiple levels greatest at the lumbosacral junction. The vertebral body heights are within normal limits, no obvious fracture is seen. No sublux ation is noted. Osseous detail is limited on lateral view due to overlying soft tissue density. There is suggestion of facet hypertrophic changes at multiple levels. Vascular calcifications are seen in the abdominal aorta and iliac arteries. Gaseous distention of the stomach as well as gaseous distention of loops of bowel in the abdomen are seen. Surgical clips overlie the right upper quadrant. IMPRESSION: 1. Multilevel degenerative changes in the lumbar spine. No obvious fracture is seen, and there is no subluxation. 2. Nonspecific gaseous distention loops of bowel in the abdomen.
[2020-03-29] MEDS: Amlodipine 5 MG TAB PO SCH (16:42)
[2020-03-29] MEDS: Acetaminophen 325 MG TAB PO PRN (21:42)
[2020-03-29] MEDS: Atorvastatin Calcium 40 MG TAB PO SCH (21:43)
[2020-03-30] MEDS: Vancomycin HCl 25 MG/ML Oral PO SCH ×4 (00:08→17:10)
[2020-03-30 04:01] LABS: #Eosinphils 0.5 thou/uL (0.0-0.7); #Monocytes 1.7 thou/uL (0.11-0.59); #Neutrophils 7.8 thou/uL (1.40-6.50); %Basophils 0.4 % (0.0-1.0); %Eosinophils 4.2 % (0.0-10.0); %Lymphocytes 16.4 % (21.0-51.0); %Monocytes 14.5 % (0.0-10.0); %Neutrophils 64.6 % (42.0-75.0); Hemoglobin 11.8 g/dL (14.0-18.0); Mean Corpuscular HGB CONC 31.3 g/dL (32.0-36.0); Mean Corpuscular Hemoglobin 29.2 pg (27.0-31.0); Mean Corpuscular Volume 93.1 fL (78.0-98.0); Mean Platelet Volume 8.5 fL (7.4-10.4); Platelet Count 198 thou/uL (130-400); RBC Distribution Width 12.4 % (11.5-14.5); Red Blood Cell (RBC) Count 4.03 mill/uL (4.70-6.10)
[2020-03-30 04:25] LABS: ALT (SGPT) 20 U/L (8-55); AST (SGOT) 19 U/L (5-34); Albumin 2.2 g/dL (3.4-4.8); Alkaline Phosphatase 70 U/L (40-110); Anion Gap 11 mmol/L (10-20); BUN (Urea Nitrogen) 49 mg/dL (8.4-25.7); Bilirubin, Total 0.3 mg/dL (0.2-1.2); Calc. Creatinine Clearance 79 mL/min (70-130); Calcium 7.9 mg/dL (7.8-10.44); Carbon Dioxide 23 mmol/L (23-31); Chloride 107 mmol/L (98-107); Estimated GFR-MDRD 48; Globulin 2.9 g/dL (2.4-3.5); Glucose 255 mg/dL (83-110); Potassium 4.5 mmol/L (3.5-5.1); Protein, Total 5.1 g/dL (5.8-8.1); Sodium 136 mmol/L (136-145)
[2020-03-30] MEDS: Acetaminophen 325 MG TAB PO PRN ×2 (04:35→15:16)
[2020-03-30] MEDS: HumaLOG 300 UNITS/3 ML VIAL SC PRN ×4 (06:37→22:44)
--- NOTE | 2020-03-30 06:51 | PDOC.FM ---
- Subjective Subjective: No acute overnight events. Feeling well this morning. Continues ot have back pain. No new complaints. Denies chest pain, SOB, n/v. Having 2-3 BMs per day which is more than usual for him. Tells me today his back pain has been ongoing for at least 2-3 weeks and radiates to his R leg. - Objective Vital Signs & Weight: Vital Signs (12 hours) Temp Pulse Resp BP BP Pulse Ox 03/30/20 00:21 100 03/29/20 20:00 98.6 F 59 L 18 155/97 H 155/97 H 97 Weight Admit Weight 118.841 kg Weight 125.237 kg I&O: 03/28/20 03/29/20 03/30/20 06:59 06:59 06:59 Intake Total 680 2136.7 1702.6 Output Total 1500 Balance -820 2136.7 1702.6 Result Diagrams: 03/30/20 03:45 03/30/20 03:45 EKG Reviewed by me: Yes (tele: sinus gato, one 2s pause) Phys Exam - Physical Examination Constitutional: NAD HEENT: moist MMs Neck: supple Respiratory: no wheezing, no rales, no rhonchi, clear to auscultation bilateral bradycardia, regular rhythm, systolic murmur Gastrointestinal: soft, non-tender, no distention, positive bowel sounds Musculoskeletal: no edema, pulses present pulses present but difficult to palpate Neurological: non-focal, moves all 4 limbs Psychiatric: normal affect, A&O x 3 Deviation from normal: macular rash to trunk and arms, fading Dx/Plan - Plan Plan: UTI Previously sepsis due to UTI, but no longer meeting SIRS criteria. Appears stable. Urine cx with proteus that is sensitive to cephalosporins. Has been treated with rocephin. - may switch to PO omnicef - will need 10 total days of abx therapy, to be completed on 04/05/20 C difficile colitis Colitis noted on imaging upon admission. Due to patient being found down and covered in stool, C diff toxin was checked and was positive. - continue oral vancomycin - will need 10 total days of therapy to be completed on 04/06/20 Bradycardia Noted on tele overnight and exam this AM. - discontinued coreg - cardiology following, appreciate recs Back pain Unknown etiology, no apparent flank tenderness. XR lumbar and thoracic spine performed yesterday, no acute fractures noted. Suspect chronic disc-related pathology as patient now reporting this has been bothersome for several weeks and radiates down the R leg. - pain management - PT/OT/rehab - XR lumbar and thoracic spine negative for acute fracture s/p fall Elevated Troponin: NSTEMI vs Sepsis vs Decreased Renal Function Troponin elevated at 1.75 on admission; was suspected most likely due to sepsis and decreased renal clearance, therapeutic lovenox administered in ED and ASA given on admission to the floor; continued to trend troponin overnight and continued to rise to 3.34 and then 4.92. He developed EKG changes including T wave inversions, RBBB, prolonged QTc, although he continues to deny chest pain. He was given ASA and started on therapeutic heparin and statin. - heparin gtt stopped this AM - f/u cardiology recs Rhabdomyolysis Unknown down time, last known normal 2 days ago. CK 1648, K 5.5, Cr 4.98. 2+ blood on UA although only 4-6 RBCs, may have myoglobin in urine upon admission. - s/p fluid resuscitation in ED as above - discontinued IVF - CK downtrending, will continue to monitor Altered Mental Status, resolved Mostly likely 2/2 sepsis. Initial consideration for ischemic stroke but patient is alert and non-focal on exam today. - sepsis treated with IVF and abx as above - no need for extensive stroke work up Hyperkalemia 5.5 prior to fluid resuscitation. Likely 2/2 rhabdomyolysis. S/P calcium chloride in ED. No peaked T waves on EKG. K corrected with IVF resuscitation, CaCl. - continue to monitor daily BMP CA Cr 4.98, baseline appears to be around 1.5 in 04/2019. Likely due to sepsis and rhabdomyolysis. Improved with fluid resuscitation. - s/p fluid resuscitation in ED - continue strict I/O - Cr continues to improve, monitor BMP daily Hypertension Hypertensive today. Automatic cuff giving SBP >200 but manual recheck reveals systolic BP in 180s. Initially permissive hypertension due to possible ischemic stroke. - stable with SBP in 150s today - will add anti-hypertensives when home medications are reconciled Type II DM Poorly controlled. Glucose 391 on admission No ketones in urine. Low suspicion for DKA/HHS. - will start moderate SSI - continue to monitor glycemic status - reconcile home meds, will likely start basal insulin Bug Bites Diffuse rash on trunk and arms appears consistent with bed bugs vs scabies - improving with permethrin cream Leukocytosis, improving Initial WBC 16.4. Likely 2/2 sepsis. - down trending - trend AM CBC Dispo: likely DC to rehab vs SNF when medically stable, soon DVT ppx: heparin Diet: Heart healthy, carb consistent IVF: SL Addendum - Attending - Attending Attestation Date/Time: 03/30/20 3305 I personally evaluated the patient and discussed the management with the team. I agree with the History, Examination, Assessment and Plan documented above with any addition or exceptions noted below. Patient continues to improve. Dc heparin gtt after d/w cards. Increase htn control. Continue antimicrobials. Xfer to med/surg if possible.
[2020-03-30] MEDS: Amlodipine 5 MG TAB PO SCH ×2 (08:12→20:27)
[2020-03-30] MEDS: cefTRIAXone\\ROCEPHIN 1 GM in Sodium Chloride 0.9% 100 ML IVPB SCH (08:13)
[2020-03-30 08:39] LABS: Bicarbonate (HCO3v) 5.7 mmol/L (22.0-28.0); CO2 Tension (PvCO2) 12.8 mmHg (40.0-50.0); Chloride 131 mmol/L (98-107); Sodium 159 mmol/L (138-145); T. Carbon Dioxide 6.1 mmol/L (22.0-28.0); vO2 Saturation-calc 71.3 % (60.0-85.0)
[2020-03-30] MEDS ORDERED: Labetalol HCl 100 MG/20 ML VIAL SLOW IVP SCH (12:45)
[2020-03-30] MEDS: Enoxaparin Sodium 40 MG/0.4 ML SYRINGE SC SCH (20:27)
[2020-03-30] MEDS: Atorvastatin Calcium 40 MG TAB PO SCH (20:27)
[2020-03-31] MEDS: Vancomycin HCl 25 MG/ML Oral PO SCH ×4 (00:21→21:58)
[2020-03-31] MEDS ORDERED: Ondansetron ODT 4 MG TAB PO PRN (01:28)
[2020-03-31 05:14] LABS: ALT (SGPT) 29 U/L (8-55); AST (SGOT) 29 U/L (5-34); Albumin 2.6 g/dL (3.4-4.8); Alkaline Phosphatase 81 U/L (40-110); Anion Gap 15 mmol/L (10-20); BUN (Urea Nitrogen) 45 mg/dL (8.4-25.7); Bilirubin, Total 0.4 mg/dL (0.2-1.2); Calc. Creatinine Clearance 74 mL/min (70-130); Calcium 8.9 mg/dL (7.8-10.44); Carbon Dioxide 24 mmol/L (23-31); Chloride 104 mmol/L (98-107); Estimated GFR-MDRD 44; Globulin 3.8 g/dL (2.4-3.5); Glucose 310 mg/dL (83-110); Potassium 4.8 mmol/L (3.5-5.1); Protein, Total 6.4 g/dL (5.8-8.1); Sodium 138 mmol/L (136-145)
[2020-03-31] MEDS: Levothyroxine Sodium 125 MCG TAB PO SCH (05:15)
[2020-03-31] MEDS: HumaLOG 300 UNITS/3 ML VIAL SC PRN ×3 (05:16→16:33)
[2020-03-31 05:32] LABS: Hemoglobin 13.2 g/dL (14.0-18.0); Mean Corpuscular HGB CONC 31.8 g/dL (32.0-36.0); Mean Corpuscular Hemoglobin 29.6 pg (27.0-31.0); Mean Corpuscular Volume 93.1 fL (78.0-98.0); Mean Platelet Volume 8.8 fL (7.4-10.4); Platelet Count 226 thou/uL (130-400); RBC Distribution Width 12.5 % (11.5-14.5); Red Blood Cell (RBC) Count 4.45 mill/uL (4.70-6.10); White Blood Cell (WBC) Count 20.9 thou/uL (4.8-10.8)
[2020-03-31 05:36] LABS: Band 8 % (5-11); Lymphocytes 7 % (21-51); MDiff Complete? YES; Monocytes 9 % (0-10); Neutrophil 76 % (42-75)
[2020-03-31] MEDS: Promethazine HCl 25 MG/ML VIAL IM/IV PRN ×2 (05:44→10:35)
--- NOTE | 2020-03-31 06:53 | PDOC.FM ---
- Subjective Subjective: Vomiting overnight treated with phenergan. Continues with black vomiting this morning. Altered level of alertness, patient not directly verbalizing complaints but appears uncomfortable with abdominal palpation. - Objective Vital Signs & Weight: Vital Signs (12 hours) Temp Pulse Resp BP BP Pulse Ox 03/31/20 04:55 97.9 F 77 22 H 179/74 H 93 L 03/31/20 01:01 95 03/31/20 00:00 61 161/68 H 03/30/20 19:33 97.4 F L 61 18 186/74 H 95 Weight Admit Weight 118.841 kg Weight 125.237 kg I&O: 03/29/20 03/30/20 03/31/20 06:59 06:59 06:59 Intake Total 2136.7 1702.6 2360 Balance 2136.7 1702.6 2360 Result Diagrams: 03/31/20 09:18 03/31/20 09:18 Phys Exam - Physical Examination decreased level of alertness, arousable clear to auscultation anteriorly Cardiovascular: RRR systolic murmur Gastrointestinal: soft, no distention, positive bowel sounds RUQ and epigastric tenderness, no peritoneal signs Musculoskeletal: no edema, pulses present follows some commands Skin: no rash Dx/Plan - Plan Plan: Vomiting Black emesis noted overnight. Has been on heparin gtt for NSTEMI which was discontinued yesterday. Suspect possible UGIB. - CMP and CBC stable this AM, Hgb 13 - consult GI, DR. Alonzo - increased protonix to therapeutic dose UTI Previously sepsis due to UTI, but no longer meeting SIRS criteria. Appears stable. Urine cx with proteus that is sensitive to cephalosporins. Has been treated with rocephin. - may switch to PO omnicef; will tx with rocephin if unable to tolerate PO - will need 10 total days of abx therapy, to be completed on 04/05/20 C difficile colitis Colitis noted on imaging upon admission. Due to patient being found down and covered in stool, C diff toxin was checked and was positive. - continue oral vancomycin - will need 10 total days of therapy to be completed on 04/06/20 Bradycardia None on tele overnight 03/30. - discontinued coreg - continue tele - cardiology following, appreciate recs Back pain Unknown etiology, no apparent flank tenderness. XR lumbar and thoracic spine performed yesterday, no acute fractures noted. Suspect chronic disc-related pathology as patient now reporting this has been bothersome for several weeks and radiates down the R leg. - pain management - PT/OT/rehab - XR lumbar and thoracic spine negative for acute fracture s/p fall Elevated Troponin: NSTEMI vs Sepsis vs Decreased Renal Function Troponin elevated at 1.75 on admission; was suspected most likely due to sepsis and decreased renal clearance, therapeutic lovenox administered in ED and ASA given on admission to the floor; continued to trend troponin overnight and continued to rise to 3.34 and then 4.92. He developed EKG changes including T wave inversions, RBBB, prolonged QTc, although he continues to deny chest pain. He was given ASA and started on therapeutic heparin and statin. Heparin gtt stopped 03/30. - rechecked troponin this AM due to altered level of consciousness, 0.7 - EKG with computer interpretation of a flutter although I do not agree with this interpretation; no acute ST changes Rhabdomyolysis Unknown down time, last known normal 2 days ago. CK 1648, K 5.5, Cr 4.98. 2+ blood on UA although only 4-6 RBCs, may have myoglobin in urine upon admission. - s/p fluid resuscitation in ED as above - discontinued IVF - CK downtrending, will continue to monitor Altered Mental Status, resolved Mostly likely 2/2 sepsis. Initial consideration for ischemic stroke but patient is alert and non-focal on exam today. - sepsis treated with IVF and abx as above - no need for extensive stroke work up Hyperkalemia 5.5 prior to fluid resuscitation. Likely 2/2 rhabdomyolysis. S/P calcium chloride in ED. No peaked T waves on EKG. K corrected with IVF resuscitation, CaCl. - continue to monitor daily BMP CA Cr 4.98, baseline appears to be around 1.5 in 04/2019. Likely due to sepsis and rhabdomyolysis. Improved with fluid resuscitation. - s/p fluid resuscitation in ED - continue strict I/O - Cr continues to improve, monitor BMP daily Hypertension Hypertensive today. Automatic cuff giving SBP >200 but manual recheck reveals systolic BP in 180s. Initially permissive hypertension due to possible ischemic stroke. - stable with SBP in 150s today - will add anti-hypertensives when home medications are reconciled Type II DM Poorly controlled. Glucose 391 on admission No ketones in urine. Low suspicion for DKA/HHS. - will start moderate SSI - continue to monitor glycemic status - reconcile home meds, will likely start basal insulin Bug Bites Diffuse rash on trunk and arms appears consistent with bed bugs vs scabies - improving with permethrin cream Leukocytosis, improving Initial WBC 16.4. Likely 2/2 sepsis. - down trending - trend AM CBC Dispo: likely DC to rehab vs SNF when medically stable, soon DVT ppx: held due to possible UGIB GI ppx: protonix Diet: Heart healthy, carb consistent IVF: SL Addendum - Attending - Attending Attestation Date/Time: 03/31/20 7859 I personally evaluated the patient and discussed the management with the team. I agree with the History, Examination, Assessment and Plan documented above with any addition or exceptions noted below. Patient rouses to voice and follows commands, but says he is tired. Has what appears to be coffee ground emesis. Will consult GI, change protonix to BID and if his mental status worsens again consider CT head in light of recent anticoagulation.
[2020-03-31] MEDS: Amlodipine 5 MG TAB PO SCH ×3 (08:43→21:57)
[2020-03-31] MEDS: Cefdinir 300 MG CAP PO SCH ×3 (08:43→21:57)
[2020-03-31] MEDS ORDERED: Insulin Glargine 10 UNITS in Pre-Filled Syringe SC SCH (09:00)
--- NOTE | 2020-03-31 09:15 | RAD ---
Exam: 1 view abdomen HISTORY: Vomiting. Evaluate for ileus versus small bowel obstruction COMPARISON: 04/14/2019 FINDINGS: Gastric distention. Multiple upper normal air-filled loops of small bowel. There does appea r to be some scattered air in the decompressed colon. Better interrogation with abdomen and pelvic CT utilizing oral and IV contrast. Surgical clips in the right upper quadrant compatible with previou s cholecystectomy. Impression: Gastric distention. Consider abdomen and pelvic CT with contrast to better interrogate th e small bowel. Additionally, consider placement of nasogastric tube in the stomach.
--- NOTE | 2020-03-31 09:24 | RAD ---
Exam: Chest one view HISTORY:Fever Comparison: 03/26/2020 FINDINGS: Cardiac silhouette:Enlarged cardiac silhouette. Aorta: Atherosclerosis of the aorta Pulmonary vessels: Normal Costophrenic angles: Bibasilar pleural effusions. LUNGS: Parenchymal changes in the lung bases. Pneumothorax: None Osseous abnormalities: None IMPRESSION: Bibasilar pleural and parenchymal changes. Changes in the lung bases may be due to atelec tasis, pneumonia or aspiration.
[2020-03-31 09:54] LABS: Hemoglobin 13.9 g/dL (14.0-18.0); Mean Corpuscular Hemoglobin 30.2 pg (27.0-31.0); Mean Corpuscular Volume 94.3 fL (78.0-98.0); Mean Platelet Volume 9.1 fL (7.4-10.4); Platelet Count 193 thou/uL (130-400); RBC Distribution Width 12.5 % (11.5-14.5); Red Blood Cell (RBC) Count 4.61 mill/uL (4.70-6.10); White Blood Cell (WBC) Count 19.4 thou/uL (4.8-10.8)
[2020-03-31 10:02] LABS: ALT (SGPT) 29 U/L (8-55); AST (SGOT) 30 U/L (5-34); Albumin 2.7 g/dL (3.4-4.8); Alkaline Phosphatase 83 U/L (40-110); Anion Gap 17 mmol/L (10-20); BUN (Urea Nitrogen) 47 mg/dL (8.4-25.7); Bilirubin, Total 0.4 mg/dL (0.2-1.2); Calc. Creatinine Clearance 67 mL/min (70-130); Calcium 8.9 mg/dL (7.8-10.44); Carbon Dioxide 21 mmol/L (23-31); Chloride 102 mmol/L (98-107); Estimated GFR-MDRD 39; Globulin 3.9 g/dL (2.4-3.5); Glucose 372 mg/dL (83-110); Potassium 4.8 mmol/L (3.5-5.1); Protein, Total 6.6 g/dL (5.8-8.1); Sodium 135 mmol/L (136-145)
[2020-03-31 10:14] LABS: Troponin I 0.742 ng/mL (< 0.028)
[2020-03-31 10:25] LABS: Band 12 % (5-11); Lymphocytes 6 % (21-51); MDiff Complete? YES; Monocytes 7 % (0-10); Neutrophil 75 % (42-75); Platelet Morphology Comment Appears Adequate; RBC Morphology Normal
[2020-03-31] MEDS: Pantoprazole 40 MG VIAL IVP SCH ×2 (10:27→21:57)
[2020-03-31] MEDS: hydrALAZINE 20 MG/ML VIAL SLOW IVP PRN (13:31)
[2020-03-31] MEDS ORDERED: Iopamidol-370 76% 500 ML 1 ML ONE (13:45)
[2020-03-31] MEDS ORDERED: Iopamidol 370 76% 50 ML VIAL FS ONE (13:45)
[2020-03-31] MEDS: metroNIDAZOLE 500 MG in Premix Bag 1 BAG IVPB SCH ×2 (16:15→23:50)
[2020-03-31] MEDS ORDERED: Vancomycin HCl 25 MG/ML Oral PO SCH (18:00)
--- NOTE | 2020-03-31 20:22 | CT ---
CT head noncontrast HISTORY: Altered mental status. COMPARISON: 03/26/2020. FINDINGS: There is no evidence of acute intracranial hemorrhage or infarct. The ventricles appear nor mal in size, shape and position. There is no mass effect or shift of midline structures. IMPRESSION : No abnormalities are demonstrated.
--- NOTE | 2020-03-31 20:50 | CT ---
CT abdomen and pelvis with IV and oral contrast HISTORY: Abdominal pain. Colitis. Ileus. COMPARISON: 03/26/2020. FINDINGS: Small amount of bilateral pleural fluid and atelectasis at each lung base. Nasogastric tube descends to the stomach. Contrast opacified proximal small bowel is decompressed. No evidence of bowel obstruction or inflammation. Multiple bilateral renal cysts are stable. Rectal wall is less thickened than on the prior exam. Prominent degenerative changes throughout the lumbar spine. Chronic-type findings throughout the abdo men and pelvis are stable. IMPRESSION : No evidence of bowel obstruction, ileus, or other acute abnormality. New small bilateral pleural effusions. Chronic-type findings are stable.
--- NOTE | 2020-03-31 21:40 | CON ---
DATE OF CONSULTATION: 03/31/2020 REASON FOR CONSULTATION: Dark-colored vomitus. CONSULTING PROVIDER: Ann Marie Avelar DO HISTORY OF PRESENT ILLNESS: The patient is a 74-year-old male with past medical history of hypertension and diabetes with subsequent loss of his left lower extremity with [id number] amputation, who initially presented to the hospital with altered mental status. 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 At that point, he was also covered in his own feces with no seizure-like activity noted at that time. He was taken to the [facility] ER for further evaluation and during the course of this admission, he was diagnosed with urosepsis, rhabdomyolysis, hyperkalemia, acute kidney injury, as well as an NSTEMI that has been treated during the course of this admission. He was also subsequently diagnosed with Clostridium difficile colitis and placed on oral vancomycin as well as being placed on a heparin drip in light of his recent NSTEMI. He was responding well to treatment until approximately last night/this morning when the patient began having increased abdominal pain, nausea, and vomited dark/black-colored fluid. Subsequently, an NG tube was placed and around 1 to 1.5 L of dark/black fluid was obtained within the canister concerning for possible bleeding in light of anticoagulation. At the time of the interview, the patient was alert and oriented x2 and was able to respond to my questionings with very short truncated answers. Currently, he states that he is in increased abdominal pain in all abdominal quadrants, but could not clarify/quantify the pain at this time. He also added that since placement of the NG tube, he did not feel any significant relief with either his nausea or vomiting, although his last episode of emesis was this morning. Otherwise, the patient denied any dysphagia or odynophagia prior to the onset of these new symptoms. He also adds that he has been having increased chronic back pain, but this has been present for weeks even prior to admission. REVIEW OF SYSTEMS: A 10-category review of systems could only partially be completed due to the patient's altered mental status. PAST MEDICAL HISTORY: As per HPI. PAST SURGICAL HISTORY: Left below-knee amputation. FAMILY HISTORY: Unknown. SOCIAL HISTORY: Unknown. OUTPATIENT MEDICATIONS: Reviewed. ALLERGIES: NO KNOWN DRUG ALLERGIES. PHYSICAL EXAMINATION: VITAL SIGNS: Temperature 98.2, pulse 85, blood pressure 182/85, respiratory rate 20, saturating 90% on room air. GENERAL: The patient was lying in bed, in mild distress. Alert and oriented x2. HEENT: Normocephalic and atraumatic. NECK: Supple. No JVD or scleral icterus noted. CARDIOVASCULAR: Regular rate and rhythm, but a 3/6 systolic murmur was best heard at the left upper sternal border. RESPIRATORY: Difficult to auscultate due to the patient's body habitus, but clear to auscultation bilaterally, but with poor inspiratory effort. ABDOMEN: Normoactive bowel sounds. Soft, obese abdomen. Tenderness to palpation in all abdominal quadrants. EXTREMITIES: Nonpitting edema noted in the right lower extremity. LABORATORY DATA: CBC with white blood cell count of 19.4, hemoglobin 13.9, hematocrit 43.5, platelets 193. Chemistry with a sodium of 135, potassium 4.8, chloride 102, CO2 of 21, BUN 47, creatinine 1.71, glucose 372, AST 30, ALT 29, alkaline phosphatase 83, total bilirubin 0.4. Troponin 0.742. Stool studies were positive for C. difficile and urine culture was positive for Proteus mirabilis. IMAGING DATA: Abdominal x-ray was obtained on March 31, 2020, which showed significant gastric distention as well as multiple upper normal air-filled loops of small bowel with some scattered air in the decompressed colon. Surgical clips were seen in the right upper quadrant compatible with previous cholecystectomy. These findings were concerning, but not diagnostic of either ileus or possible small bowel obstruction. ASSESSMENT AND PLAN: The patient is a 74-year-old male with past medical history of diabetes, hypertension, [id number] aortic stenosis, peripheral vascular disease, hyperlipidemia, hypertension, hypothyroidism, ileus, and chronic kidney disease; presenting with urosepsis, rhabdomyolysis, hyperkalemia, acute kidney injury, NSTEMI, and now increased nausea and vomiting with darker colored fluid concerning for the presence of ileus versus small bowel obstruction in light of C. Difficile colitis. 1. C. difficile colitis. The patient has had a fairly complicated hospital course with diagnoses of urosepsis, rhabdomyolysis, hyperkalemia, acute kidney injury, NSTEMI, but did have stool studies on admission that were positive for Clostridium difficile. He was subsequently placed on oral vancomycin 125 mg every 6 hours and was actually showing improvement in his clinical status until late last night/early this morning when he began having increased nausea and vomiting with the vomitus consisting of dark/black colored fluid. Imaging today showed gastric distention, but also showed possible distended loops of small bowel concerning for the presence of ileus versus a small-bowel obstruction, which would be in line with the feculent type material that the patient is vomiting as well as the lack of bowel movements over the last 12 to 24 hours. At this time, it is unclear if the C. difficile colitis is causing this ileus versus obstruction or if it is related to other underlying abnormality. RECOMMENDATIONS: 1. Would obtain a CT scan of the abdomen/pelvis with contrasted study to determine for possible small bowel obstruction. 2. Would replace the NG tube and place it to low intermittent wall suction as part of treatment for intestinal ileus. 3. Would increase the oral vancomycin to 250 mg every 6 hours in addition to adding IV metronidazole to his regimen for treatment of his Clostridium difficile colitis and what appears to be more complicated disease. 4. Pain control per primary team, but would avoid any narcotics or any medications that would affect the motility of the GI tract. 5. Would hold any anticoagulation for the time being in light of possible GI bleed. However, the patient is a poor candidate for upper endoscopy at this time based on significant other medical comorbidities and C. difficile status. Given that his hemoglobin has not changed, I would continue to monitor. 6. Would continue to trend his H and H and transfuse as necessary to maintain an H and H of 7/21. 7. Would continue to monitor clinically for signs of GI bleeding. 8. We will continue to follow. Please call with any questions. Job ID: [id number]
[2020-03-31] MEDS: Atorvastatin Calcium 40 MG TAB PO SCH (21:57)
[2020-03-31] MEDS: Enoxaparin Sodium 40 MG/0.4 ML SYRINGE SC SCH (21:57)
[2020-04-01] MEDS: Vancomycin HCl 25 MG/ML Oral PO SCH ×4 (02:21→20:08)
[2020-04-01] MEDS: Acetaminophen 325 MG TAB PO PRN (02:51)
[2020-04-01] MEDS: Levothyroxine Sodium 125 MCG TAB PO SCH (05:07)
--- NOTE | 2020-04-01 06:26 | PDOC.FM ---
- Subjective Subjective: No acute events overnight. He is complaining of being thirsty this AM. He denies chest pain, SOB. Denies abdominal pain this AM, states he is feeling better since yesterday. He has not had any further nausea, vomiting since NG placement. - Objective Vital Signs & Weight: Vital Signs (12 hours) Temp Pulse BP Pulse Ox 04/01/20 04:09 97.2 F L 03/31/20 23:49 97.8 F 03/31/20 21:57 89 156/69 H 03/31/20 20:00 100 03/31/20 19:30 98.1 F Weight Admit Weight 118.841 kg Weight 125.237 kg Most Recent Monitor Data Heart Rate from ECG 62 NIBP 125/57 NIBP BP-Mean 79 Respiration from ECG 14 SpO2 98 I&O: 03/30/20 03/31/20 04/01/20 06:59 06:59 06:59 Intake Total 1702.6 2360 Output Total 1999 Balance 1702.6 2360 -1999 Result Diagrams: 04/01/20 06:15 04/01/20 06:15 Phys Exam - Physical Examination Constitutional: NAD clear anteriorly bilateral lungs Cardiovascular: RRR systolic murmur Gastrointestinal: soft, no distention, positive bowel sounds mild tenderness Musculoskeletal: no edema Neurological: non-focal, moves all 4 limbs Deviation from normal: sleeping but easily aroused, oriented x3 Dx/Plan - Plan Plan: Vomiting Black emesis noted overnight. Has been on heparin gtt for NSTEMI which was discontinued 03/30. Suspect possible UGIB. - CMP and CBC stable this AM, Hgb 13 - consult GI, DR. Alonzo, appreciate recs: -- possible SBO vs ileus -- monitor H/H for possible UGIB -- NG LIS -- not a candidate for EGD right now given C diff - increased protonix to therapeutic dose - CT abd/pelvis without signs of SBO/ileus - monitor for signs of active bleeding UTI Previously sepsis due to UTI, but no longer meeting SIRS criteria. Appears stable. Urine cx with proteus that is sensitive to cephalosporins. Has been treated with rocephin. - continue rocephin for now while NG in place - will need 10 total days of abx therapy, to be completed on 04/05/20 C difficile colitis Colitis noted on imaging upon admission. Due to patient being found down and covered in stool, C diff toxin was checked and was positive. started abx on 03/27 , increased dose on 03/31 - oral vanc increased per GI , added flagyl Bradycardia, resolved None on tele overnight 03/30. - discontinued coreg - continue tele - cardiology following, appreciate recs Back pain Unknown etiology, no apparent flank tenderness. XR lumbar and thoracic spine performed yesterday, no acute fractures noted. Suspect chronic disc-related pathology as patient now reporting this has been bothersome for several weeks and radiates down the R leg. - pain management - PT/OT/rehab - XR lumbar and thoracic spine negative for acute fracture s/p fall NSTEMI Troponin elevated at 1.75 on admission; was suspected most likely due to sepsis and decreased renal clearance, therapeutic lovenox administered in ED and ASA given on admission to the floor; continued to trend troponin overnight and continued to rise to 3.34 and then 4.92. He developed EKG changes including T wave inversions, RBBB, prolonged QTc, although he continues to deny chest pain. He was given ASA and started on therapeutic heparin and statin. Heparin gtt stopped 03/30. - rechecked troponin 03/31 due to altered level of consciousness, 0.7 - EKG with computer interpretation of a flutter although I do not agree with this interpretation; no acute ST changes Rhabdomyolysis Unknown down time, last known normal 2 days ago. CK 1648, K 5.5, Cr 4.98. 2+ blood on UA although only 4-6 RBCs, may have myoglobin in urine upon admission. - s/p fluid resuscitation in ED as above - discontinued IVF - CK downtrending, will continue to monitor Altered Mental Status, resolved Mostly likely 2/2 sepsis. Initial consideration for ischemic stroke but patient is alert and non-focal on exam today. - sepsis treated with IVF and abx as above - no need for extensive stroke work up Hyperkalemia 5.5 prior to fluid resuscitation. Likely 2/2 rhabdomyolysis. S/P calcium chloride in ED. No peaked T waves on EKG. K corrected with IVF resuscitation, CaCl. - continue to monitor daily BMP CA Cr 4.98, baseline appears to be around 1.5 in 04/2019. Likely due to sepsis and rhabdomyolysis. Improved with fluid resuscitation. - s/p fluid resuscitation in ED - continue strict I/O - Cr continues to improve, monitor BMP daily Hypertension Current management with IV anti-hypertensives due to NG. Will resume oral meds when able to tolerate PO. Allergy rash to quinapril. Has poorly tolerated beta blockers due to bradycardia. Type II DM - lantus, titrate up as appropriate - mild SSI - continue to monitor Bug Bites Diffuse rash on trunk and arms appears consistent with bed bugs vs scabies - improving with permethrin cream Leukocytosis, improving Initial WBC 16.4. Likely 2/2 sepsis. Had been trending downward but has now increased with acute symptoms. - continue to monitor Dispo: pending clinical improvement DVT ppx: held due to possible UGIB GI ppx: protonix Diet: NPO ice chips IVF: LR Addendum - Attending - Attending Attestation Date/Time: 04/01/20 1577 I personally evaluated the patient and discussed the management with the team. I agree with the History, Examination, Assessment and Plan documented above with any addition or exceptions noted below.
[2020-04-01 06:36] LABS: Band 9 % (5-11); Hemoglobin 11.7 g/dL (14.0-18.0); Lymphocytes 14 % (21-51); MDiff Complete? YES; Mean Corpuscular HGB CONC 31.7 g/dL (32.0-36.0); Mean Corpuscular Hemoglobin 29.4 pg (27.0-31.0); Mean Corpuscular Volume 92.6 fL (78.0-98.0); Mean Platelet Volume 8.4 fL (7.4-10.4); Monocytes 9 % (0-10); Neutrophil 68 % (42-75); Platelet Count 237 thou/uL (130-400); Platelet Morphology Comment Appears Adequate; RBC Distribution Width 12.7 % (11.5-14.5); Red Blood Cell (RBC) Count 3.97 mill/uL (4.70-6.10); White Blood Cell (WBC) Count 22.7 thou/uL (4.8-10.8)
[2020-04-01 06:51] LABS: ALT (SGPT) 24 U/L (8-55); AST (SGOT) 20 U/L (5-34); Albumin 2.4 g/dL (3.4-4.8); Alkaline Phosphatase 67 U/L (40-110); Anion Gap 11 mmol/L (10-20); BUN (Urea Nitrogen) 55 mg/dL (8.4-25.7); Bilirubin, Total 0.4 mg/dL (0.2-1.2); Calc. Creatinine Clearance 61 mL/min (70-130); Calcium 8.7 mg/dL (7.8-10.44); Carbon Dioxide 28 mmol/L (23-31); Chloride 104 mmol/L (98-107); Estimated GFR-MDRD 35; Globulin 3.2 g/dL (2.4-3.5); Glucose 253 mg/dL (83-110); Potassium 4.3 mmol/L (3.5-5.1); Protein, Total 5.6 g/dL (5.8-8.1); Sodium 139 mmol/L (136-145)
[2020-04-01] MEDS: metroNIDAZOLE 500 MG in Premix Bag 1 BAG IVPB SCH ×3 (09:54→23:12)
[2020-04-01] MEDS: Amlodipine 5 MG TAB PO SCH ×3 (10:00→20:11)
[2020-04-01] MEDS: Pantoprazole 40 MG VIAL IVP SCH ×2 (10:02→20:08)
[2020-04-01] MEDS: Insulin Glargine 20 UNITS in Pre-Filled Syringe 1 EACH SC SCH (10:17)
[2020-04-01] MEDS: hydrALAZINE 20 MG/ML VIAL SLOW IVP PRN ×2 (10:29→20:09)
[2020-04-01] MEDS: cefTRIAXone\\ROCEPHIN 1 GM in Sodium Chloride 0.9% 100 ML IVPB SCH (10:30)
[2020-04-01] MEDS: Cefdinir 300 MG CAP PO SCH (10:35)
--- NOTE | 2020-04-01 16:00 | PDOC.BPN ---
- Brief Progress Note Transition of Care Note 04/01/20 Mr. Vines is a 74 y/o M with PMHx Type 2 DM, HTN, and CAD with PSHx L BKA who was brought to our facility by EMS after being found by his engineering assistant unresponsive on his floor at home, and covered in his own stool. His initial work up was significant for altered mental status, rhabdomyolysis with CA and hyperkalemia, sepsis 2/2 UTI, and elevated troponin. He was given vancomycin and zosyn in the ED for broad spectrum coverage, and switched to renally dosed vancomycin and cefepime upon admission due to diabetes as pseudomonal risk factor. After admission to the floor, his troponin continued to rise from 1.7 to 4.9. EKG with no ST elevations, but new T wave inversions in I and V2-V6. He denied any chest pain at this time. He was started on therapuetic heparin, and cardiology was consulted, who recommended conservative/medical management for NSTEMI. We continued to treat him with IV fluids for his rhabdomyolysis and CA , which rapidly improved. He was tested for C. difficile upon admission which was confirmed and treatment with oral vancomycin was started on hospital day 2. His urine culture revealed proteus mirablis that was teresa-sensitive and he was switched to rocephin for this. He was started on a beta franco for his HTN/ NSTEMI, and became bradycardic, so this was stopped. On 03/30 his heparin drip was stopped, and he had clinically improved with regards to his presenting conditions, was pending placement. On 03/31, he was found to have altered level of alertness and was vomiting dark/black liquid. GI was consulted due to concern for GI bleed after recent heparin drip. His oral vancomycin was increased, and flagyl was added. An NG tube was placed. CT abd pelvis revealed improving colitis without signs of ileus or SBO. He continued to be altered, with GCS of 9, and he was transferred from tele to the ICU. His H/H remained stable, he has returned to his baseline level of alertness and responsiveness. GI, Dr. Alonzo is still following his case. Ann Marie Avelar, DO PGY-1
[2020-04-01] MEDS: Lactated Ringer's 1,000 ML IV SCH ×2 (16:07→23:12)
--- NOTE | 2020-04-01 16:43 | EKG ---
Test Reason : Blood Pressure : / mmHG Vent. Rate : 081 BPM Atrial Rate : 324 BPM P-R Int : 000 ms QRS Dur : 116 ms QT Int : 430 ms P-R-T Axes : 023 -69 -38 degrees QTc Int : 499 ms Sinus rhythm Left axis deviation RSR' or QR pattern in V1 suggests right ventricular conduction delay Intraventricular conduction delay Abnormal EKG Confirmed by DR. Nara SANTIAGO ([id number]) on 04/01/2020 4:43:24 PM Referred By: SIRENA r Confirmed By:DR. Nara SANTIAGO
[2020-04-01] MEDS: HumaLOG 300 UNITS/3 ML VIAL SC PRN (17:09)
--- NOTE | 2020-04-01 20:00 | PRG ---
DATE OF SERVICE: 04/01/2020 REASON FOR CONSULTATION: Dark-colored vomitus, anemia. SUBJECTIVE: The patient did not have any further acute events or problems overnight and with minimal output from his NG tube this morning with approximately 50 mL over the last 6 to 10 hours of darker colored fluid. Today, per nursing staff and upon my evaluation, the patient was much more alert and interactive with appropriate questions and answers when compared to yesterday. Currently, the patient states that he is feeling better with no complaints of nausea, vomiting, fevers, chills, or abdominal pain. Per nursing staff, he has not had any bowel movements whether it be hematochezia or melena otherwise. Upon speaking with the patient, he does not wish to have any invasive procedures at this time and would rather proceed with more conservative management. OBJECTIVE: VITAL SIGNS: Temperature 98, pulse 71, blood pressure 156/57, respiratory rate 16, saturating 98% on room air. GENERAL: The patient is lying in bed, in no acute distress, alert and oriented x3. CARDIOVASCULAR: Regular rate and rhythm with a 3/6 systolic murmur best heard at the left upper sternal border. RESPIRATORY: Clear to auscultation bilaterally but difficult to auscultate due to the patient's body habitus. ABDOMEN: Normoactive bowel sounds. Soft, nontender, nondistended. EXTREMITIES: Nonpitting edema noted in the right lower extremity. LABORATORY DATA: CBC with a white blood cell count of 22.7, hemoglobin 11.7, hematocrit 36.8, platelets 237. Chemistry with a sodium of 139, potassium 4.3, chloride 104, CO2 of 28, BUN 55, creatinine 1.87, glucose 253. IMAGING DATA: CT of the abdomen and pelvis was obtained on March 31, 2020, which showed a small amount of bilateral pleural fluid and atelectasis at each lung base. The nasogastric tube did descend into the stomach with the proximal small bowel decompressed and no evidence of bowel obstruction or inflammation. When compared to prior exam, the rectal wall was also less thickened when compared to previous. ASSESSMENT AND PLAN: The patient is a 74-year-old male with past medical history of diabetes, hypertension, wvog-iq-[id number] aortic stenosis, peripheral vascular disease, hyperlipidemia, hypertension, hypothyroidism, ileus, and chronic kidney disease, presenting with urosepsis, rhabdomyolysis, hyperkalemia, acute kidney injury, and [id number] myocardial infarction for which he was placed on heparin drip, presenting with acute onset of darker colored emesis and anemia concerning for upper gastrointestinal bleeding. Upper GI bleeding. The patient exhibited an acute onset of altered mental status in addition to hematemesis in the form of vomiting darker colored/black fluid on March 31, 2020. Over the course of the next 12 hours, approximately 1 to 1.5 L of this dark-colored fluid were obtained through NG tube suction. Concurrently, the patient did also have a decrease in his H and H when compared to the prior day's labs concerning for upper gastrointestinal bleeding. However, today, the patient has had minimal output from the NG tube to the tune of approximately 50 mL over the last 6 to 12 hours and the patient has not had any bowel movements consistent with melenic-type stools indicating an upper gastrointestinal bleed. I discussed with the patient the likelihood of an upper gastrointestinal bleeding source based on his current labs and the amount of dark/black-colored fluid but at this point, the patient would rather proceed with more conservative management with just monitoring his H and H rather than proceeding with invasive therapies like EGD. RECOMMENDATIONS: 1. Would continue to trend his H and H and transfuse as necessary to maintain an H and H of 7/21. 2. Continue to monitor clinically for signs of active GI bleeding. 3. Continue to hold any anticoagulation in light of possible GI bleed. 4. Would continue to monitor the patient for now and if he has any further episodes of black-colored emesis or continued drop in his H and H, would strongly urge the patient to proceed with EGD at that time. 5. C difficile colitis. The patient has had a fairly complicated hospital course with the diagnoses of urosepsis, rhabdomyolysis, hyperkalemia, acute kidney injury, and NSTEMI but also during this admission, the patient exhibited diarrhea with infectious stool studies positive for Clostridium difficile. He was subsequently placed on oral vancomycin 125 mg every 6 hours and was actually showing improvement in status until yesterday when he had sudden onset of an altered mental status in addition to the hematemesis. As a result of the hematemesis yesterday, there was a strong concern for possible ileus that was generated by the C difficile infection, so his oral vancomycin was increased to 250 mg q.6 in addition to addition of IV metronidazole. Today, the patient states he is doing much better with no further bowel movements over the last 12 hours per nursing staff. At this time, it is unclear if the C difficile colitis caused a transient ileus-type picture but this has not been confirmed via imaging on CT yesterday. 6. Would continue the patient on oral vancomycin 250 mg every 6 hours in addition to the IV metronidazole. 7. Would continue to monitor the patient for response to therapy. We will continue to follow. Please call with any questions. Job ID: [id number]
[2020-04-01] MEDS: Atorvastatin Calcium 40 MG TAB PO SCH (20:11)
[2020-04-02] MEDS: Vancomycin HCl 25 MG/ML Oral PO SCH ×4 (03:17→21:24)
[2020-04-02 03:39] LABS: #Lymphocytes 2.3 thou/uL (1.20-3.40); #Monocytes 2.1 thou/uL (0.11-0.59); #Neutrophils 13.4 thou/uL (1.40-6.50); %Basophils 0.2 % (0.0-1.0); %Eosinophils 5.3 % (0.0-10.0); %Monocytes 11.3 % (0.0-10.0); %Neutrophils 71.2 % (42.0-75.0); Hemoglobin 11.5 g/dL (14.0-18.0); Mean Corpuscular HGB CONC 31.6 g/dL (32.0-36.0); Mean Corpuscular Hemoglobin 29.3 pg (27.0-31.0); Mean Corpuscular Volume 92.7 fL (78.0-98.0); Mean Platelet Volume 8.1 fL (7.4-10.4); Platelet Count 260 thou/uL (130-400); RBC Distribution Width 12.7 % (11.5-14.5); Red Blood Cell (RBC) Count 3.93 mill/uL (4.70-6.10); White Blood Cell (WBC) Count 18.9 thou/uL (4.8-10.8)
[2020-04-02 04:02] LABS: ALT (SGPT) 20 U/L (8-55); AST (SGOT) 20 U/L (5-34); Albumin 2.3 g/dL (3.4-4.8); Alkaline Phosphatase 64 U/L (40-110); Anion Gap 11 mmol/L (10-20); BUN (Urea Nitrogen) 55 mg/dL (8.4-25.7); Bilirubin, Total 0.3 mg/dL (0.2-1.2); Calc. Creatinine Clearance 64 mL/min (70-130); Calcium 8.4 mg/dL (7.8-10.44); Carbon Dioxide 26 mmol/L (23-31); Chloride 102 mmol/L (98-107); Estimated GFR-MDRD 38; Globulin 3.2 g/dL (2.4-3.5); Glucose 153 mg/dL (83-110); Potassium 3.9 mmol/L (3.5-5.1); Protein, Total 5.5 g/dL (5.8-8.1); Sodium 135 mmol/L (136-145)
--- NOTE | 2020-04-02 05:27 | PDOC.FM ---
- Subjective Subjective: Patient doing well this morning, no acute concerns. Denies pain, SOB. - Objective MAR Reviewed: Yes Vital Signs & Weight: Vital Signs (12 hours) Temp Pulse BP Pulse Ox 04/02/20 03:56 98.0 F 04/01/20 23:52 98.4 F 04/01/20 20:11 67 171/82 H 04/01/20 20:09 67 171/82 H 04/01/20 20:00 100 04/01/20 19:38 98.6 F Weight Admit Weight 118.841 kg Weight 125.237 kg Most Recent Monitor Data Heart Rate from ECG 63 NIBP 144/68 NIBP BP-Mean 93 Respiration from ECG 19 SpO2 98 I&O: 03/31/20 04/01/20 04/02/20 06:59 06:59 06:59 Intake Total 2360 940 Output Total 1999 200 Balance 2360 -1999 740 Result Diagrams: 04/02/20 03:20 04/02/20 03:20 Phys Exam - Physical Examination Constitutional: NAD HEENT: PERRLA, moist MMs Neck: no nodes, full ROM Respiratory: no wheezing, no rales, no rhonchi, clear to auscultation bilateral Cardiovascular: RRR, no rub Systolic ejection murmur 2/6 Gastrointestinal: soft, non-tender, no distention, positive bowel sounds Musculoskeletal: no edema L side BKA Neurological: non-focal, moves all 4 limbs Psychiatric: normal affect, A&O x 3 Skin: no rash, cap refill <2 seconds Dx/Plan - Plan Plan: Vomiting Likely UGIB - CMP and CBC stable this AM, Hgb 11.5 - consult GI, DR. Alonzo, appreciate recs: -- monitor H/H for possible UGIB -- NG LIS -- Patient does not want EGD at this time - protonix at therapeutic dose - CT abd/pelvis without signs of SBO/ileus - monitor for signs of active bleeding UTI Previously sepsis due to UTI, but no longer meeting SIRS criteria. Appears stable. Urine cx with proteus that is sensitive to cephalosporins. - continue rocephin for now - will need 10 total days of abx therapy, to be completed on 04/05/20 C difficile colitis Colitis noted on imaging upon admission. Due to patient being found down and covered in stool, C diff toxin was checked and was positive. started abx on 03/27 , increased dose on 03/31 - oral vanc increased per GI , added flagyl Back pain Unknown etiology, no apparent flank tenderness. Likely chronic disc pathology. - pain management - PT/OT/rehab - XR lumbar and thoracic spine negative for acute fracture s/p fall NSTEMI Troponin elevated at 1.75 on admission; was suspected most likely due to sepsis and decreased renal clearance, therapeutic lovenox administered in ED and ASA given on admission to the floor; continued to trend troponin overnight and continued to rise to 3.34 and then 4.92. He developed EKG changes including T wave inversions, RBBB, prolonged QTc, although he continues to deny chest pain. He was given ASA and started on therapeutic heparin and statin. Heparin gtt stopped 03/30. Troponin 03/31 was 0.7. CA Cr 4.98, baseline appears to be around 1.5 in 04/2019. Likely due to sepsis and rhabdomyolysis. Improved with fluid resuscitation. - s/p fluid resuscitation in ED - continue strict I/O - Cr continues to improve, monitor BMP daily, likely near baseline at this time Hypertension Resume home medications. Allergy rash to quinapril. Has poorly tolerated beta blockers due to bradycardia. Type II DM - lantus, titrate up as appropriate - mild SSI - continue to monitor Bug Bites Diffuse rash on trunk and arms appears consistent with bed bugs vs scabies - improving with permethrin cream Hyperkalemia, improved 5.5 prior to fluid resuscitation. Likely 2/2 rhabdomyolysis. S/P calcium chloride in ED. No peaked T waves on EKG. K corrected with IVF resuscitation, CaCl. - continue to monitor daily BMP Leukocytosis, improving Initial WBC 16.4. Likely 2/2 sepsis. Had been trending downward but has now increased with acute symptoms. - continue to monitor Rhabdomyolysis, resolved Unknown down time, last known normal 2 days before admission. CK 1648, K 5.5, Cr 4.98. 2+ blood on UA although only 4-6 RBCs, may have myoglobin in urine upon admission. Altered Mental Status, resolved Mostly likely 2/2 sepsis. Initial consideration for ischemic stroke but patient is alert and non-focal on exam today. - sepsis treated with IVF and abx as above - no need for extensive stroke work up Bradycardia, resolved None on tele overnight 03/30. - discontinued coreg - continue tele - cardiology following, appreciate recs Dispo: Improving, transfer to tele floor DVT ppx: held due to possible UGIB GI ppx: protonix Diet: CLD, per GI IVF: LR Addendum - Attending - Attending Attestation Date/Time: 04/02/20 7490 I personally evaluated the patient and discussed the management with the team. I agree with the History, Examination, Assessment and Plan documented above with any addition or exceptions noted below. No cp/sob/n/v/f/c. He has an appetite. Continue metro/vanc. Space out h/h's and continue PPI. Monitor creatinine.
[2020-04-02] MEDS: Levothyroxine Sodium 125 MCG TAB PO SCH (05:37)
[2020-04-02] MEDS: Lactated Ringer's 1,000 ML IV SCH ×3 (08:40→23:28)
[2020-04-02] MEDS: Insulin Glargine 20 UNITS in Pre-Filled Syringe 1 EACH SC SCH (08:41)
[2020-04-02] MEDS: metroNIDAZOLE 500 MG in Premix Bag 1 BAG IVPB SCH ×3 (08:42→23:27)
[2020-04-02] MEDS: Pantoprazole 40 MG VIAL IVP SCH ×2 (08:42→21:25)
[2020-04-02] MEDS: Amlodipine 5 MG TAB PO SCH ×2 (08:49→21:24)
[2020-04-02] MEDS: cefTRIAXone\\ROCEPHIN 1 GM in Sodium Chloride 0.9% 100 ML IVPB SCH (11:12)
[2020-04-02 15:47] LABS: Hemoglobin 11.4 g/dL (14.0-18.0)
--- NOTE | 2020-04-02 19:34 | PRG ---
DATE OF SERVICE: 04/02/2020 REASON FOR CONSULTATION: Dark-colored vomitus, anemia. SUBJECTIVE: The patient did not have any acute events or problems overnight and was actually discharged from the [facility] to a regular [facility] bed during the course of today. He did pull his NG tube out purposefully yesterday, but since then, has not had any further episodes of this darker colored emesis, nor has he had any melena, or continued abdominal pain. Today, he states that he is feeling much better and currently denies any nausea, vomiting, fevers, chills, hematemesis, melena, hematochezia, or abdominal pain. Upon speaking with the patient, he continues to express that he would rather proceed with more conservative management rather than invasive procedures at this time. OBJECTIVE: VITAL SIGNS: Temperature 98.5, pulse 64, blood pressure 148/75, respiratory rate 16, saturating 95% on room air. GENERAL: The patient was lying in bed, in no acute distress. Alert and oriented x4. CARDIOVASCULAR: Regular rate and rhythm with a 3/6 systolic murmur best heard at the left upper sternal border. RESPIRATORY: Clear to auscultation bilaterally. ABDOMEN: Normoactive bowel sounds. Soft, nontender, nondistended. EXTREMITIES: Nonpitting edema noted in the right lower extremity. LABORATORY DATA: CBC with a white blood cell count of 18.9, hemoglobin 11.5, hematocrit 36.4, platelets 260. Chemistry with a sodium of 135, potassium 3.9, chloride 102, CO2 of 26, BUN 55, creatinine 1.78, glucose 153. IMAGING DATA: No current GI imaging is available for review. ASSESSMENT AND PLAN: The patient is a 74-year-old male with past medical history of diabetes, hypertension, mild to moderate aortic stenosis, peripheral vascular disease, hyperlipidemia, hypertension, hypothyroidism, ileus, and chronic kidney disease presenting with urosepsis (resolving), rhabdomyolysis (resolving), hyperkalemia (resolved), acute kidney injury and [id number] myocardial infarction, who during the course of this admission exhibited vomiting of darker-colored material and a decrease in his H and H concerning for upper gastrointestinal bleeding. Upper gastrointestinal bleeding. The patient exhibited an acute onset of altered mental status in addition to what appeared to be hematemesis in the form of vomiting dark/black colored fluid on March 31, 2020. Over the next 12 hours, approximately 1 to 1.5 L of this dark colored fluid were obtained through NG tube suction and this was associated with a concurrent drop in his H and H. However, since that time, the patient has had complete resolution of his nausea and vomiting, has had stabilization of his H and H and no longer has any abdominal pain. I discussed the possibility of an upper GI bleeding source contributing to these current symptoms to the patient today and he continues to state that he would rather proceed with more conservative management with just monitoring his condition with repeat H and H rather than proceeding with invasive therapies like upper endoscopy. At this time, the etiology of his darker-colored emesis is largely unknown, but could have been due to a bleeding source within the upper GI tract or a functional ileus with feculent vomiting. RECOMMENDATIONS: 1. We would continue to trend his H and H and transfuse as necessary to maintain an H and H of 7/21. 2. Continue to monitor clinically for signs of active GI bleeding. 3. We would continue to hold any anticoagulation in light of possible GI bleed for at least the next 24 to 48 hours, then consider restarting if clinically appropriate. 4. No upper endoscopy is indicated at this time per patient preference. However, if he continues to have a decreased H and H, or has a repeat episode of possible hematemesis, I would reconsider that at that time. Clostridium difficile colitis. The patient has had a fairly complicated hospital course including increased diarrhea with infectious stool studies positive for Clostridium difficile. He was subsequently placed on oral vancomycin 125 mg every 6 hours and was showing some improvement until March 31, 2020, with altered mental status, increased abdominal pain, and possible hematemesis versus vomiting of feculent material. The x-ray at that time showed an increase in the caliber of the small bowel and large bowel concerning for an ileus type picture, but the CT scan obtained later did not echo those findings; however, instead the oral vancomycin was increased to 250 mg every 6 hours in addition to adding IV metronidazole to his regimen. While on this regimen, he currently has had approximately 2 semi-solid bowel movements over the last 24 hours and complete resolution of his abdominal pain. At this time, it is unclear if the C. diff colitis caused a transient ileus type picture, but this seems to have resolved over the last 24 to 48 hours. RECOMMENDATIONS: 1. Continue patient on oral vancomycin 250 mg every 6 hours in addition to IV metronidazole with consideration of changing the IV formulation to oral on discharge. 2. We would continue therapy for Clostridium difficile colitis with a treatment course of 10 to 14 days (would favor 14 days given his complicated hospital course and advanced age). Given improvement in his C diff colitis, improvement in his anemia and vomiting with no indication for upper endoscopy at this time, I will sign off. Please call with any questions. Job ID: [id number]
[2020-04-02] MEDS: HumaLOG 300 UNITS/3 ML VIAL SC PRN (21:24)
[2020-04-02] MEDS: Atorvastatin Calcium 40 MG TAB PO SCH (21:24)
[2020-04-03] MEDS: Vancomycin HCl 25 MG/ML Oral PO SCH ×4 (03:03→20:30)
[2020-04-03 04:58] LABS: #Lymphocytes 2.3 thou/uL (1.20-3.40); #Neutrophils 9.6 thou/uL (1.40-6.50); %Basophils 0.3 % (0.0-1.0); %Eosinophils 6.7 % (0.0-10.0); %Lymphocytes 15.5 % (21.0-51.0); %Monocytes 13.3 % (0.0-10.0); %Neutrophils 64.2 % (42.0-75.0); Hemoglobin 11.6 g/dL (14.0-18.0); Mean Corpuscular HGB CONC 32.6 g/dL (32.0-36.0); Mean Corpuscular Hemoglobin 30.3 pg (27.0-31.0); Mean Platelet Volume 8.1 fL (7.4-10.4); Platelet Count 251 thou/uL (130-400); RBC Distribution Width 12.4 % (11.5-14.5); Red Blood Cell (RBC) Count 3.84 mill/uL (4.70-6.10)
[2020-04-03] MEDS: hydrALAZINE 20 MG/ML VIAL SLOW IVP PRN ×2 (05:07→16:41)
[2020-04-03] MEDS: Levothyroxine Sodium 125 MCG TAB PO SCH (05:07)
[2020-04-03 05:16] LABS: ALT (SGPT) 17 U/L (8-55); AST (SGOT) 17 U/L (5-34); Albumin 2.3 g/dL (3.4-4.8); Alkaline Phosphatase 65 U/L (40-110); Anion Gap 12 mmol/L (10-20); BUN (Urea Nitrogen) 44 mg/dL (8.4-25.7); Bilirubin, Total 0.3 mg/dL (0.2-1.2); Calc. Creatinine Clearance 73 mL/min (70-130); Calcium 8.2 mg/dL (7.8-10.44); Carbon Dioxide 23 mmol/L (23-31); Chloride 105 mmol/L (98-107); Estimated GFR-MDRD 43; Globulin 3.1 g/dL (2.4-3.5); Glucose 133 mg/dL (83-110); Potassium 3.9 mmol/L (3.5-5.1); Protein, Total 5.4 g/dL (5.8-8.1); Sodium 136 mmol/L (136-145)
--- NOTE | 2020-04-03 06:10 | PDOC.FM ---
- Subjective Subjective: Patient reports that he is doing well this morning with no acute concerns. He is hungry and ready to go home. - Objective MAR Reviewed: Yes Vital Signs & Weight: Vital Signs (12 hours) Temp Pulse Resp BP BP Pulse Ox 04/03/20 05:35 150/68 H 04/03/20 05:07 60 04/03/20 04:00 97.8 F 60 20 195/80 H 97 04/02/20 23:47 58 L 159/69 H 04/02/20 21:24 64 04/02/20 21:15 98.4 F 60 18 175/74 H 95 Weight Admit Weight 118.841 kg Weight 127.278 kg Most Recent Monitor Data Heart Rate from ECG 67 NIBP 150/67 NIBP BP-Mean 94 Respiration from ECG 26 SpO2 98 I&O: 04/01/20 04/02/20 04/03/20 06:59 06:59 06:59 Intake Total 3125 1660 Output Total 1999 200 0 Balance -1999 2925 1660 Result Diagrams: 04/05/20 03:25 04/05/20 03:25 Phys Exam - Physical Examination Constitutional: NAD HEENT: PERRLA, moist MMs Respiratory: no wheezing, no rales, no rhonchi, clear to auscultation bilateral Cardiovascular: RRR, no rub 2/6 systolic ejection murmur Gastrointestinal: soft, non-tender, no distention, positive bowel sounds Musculoskeletal: no edema, pulses present Neurological: non-focal, moves all 4 limbs Psychiatric: normal affect, A&O x 3 Dx/Plan - Plan Plan: Vomiting Likely UGIB - CMP and CBC stable - monitor H/H for possible UGIB - Patient does not want EGD at this time - PO C diff therapy for 14 days - PO protonix at therapeutic dose - CT abd/pelvis without signs of SBO/ileus - monitor for signs of active bleeding UTI Previously sepsis due to UTI, but no longer meeting SIRS criteria. Appears stable. Urine cx with proteus that is sensitive to cephalosporins. - continue rocephin for now - will need 10 total days of abx therapy, to be completed on 04/05/20 C difficile colitis Colitis noted on imaging upon admission. Due to patient being found down and covered in stool, C diff toxin was checked and was positive. started abx on 03/27 , increased dose on 03/31 - oral vanc, flagyl Back pain Unknown etiology, no apparent flank tenderness. Likely chronic disc pathology. - pain management - PT/OT/rehab - XR lumbar and thoracic spine negative for acute fracture s/p fall NSTEMI Troponin elevated at 1.75 on admission; was suspected most likely due to sepsis and decreased renal clearance, therapeutic lovenox administered in ED and ASA given on admission to the floor; continued to trend troponin overnight and continued to rise to 3.34 and then 4.92. He developed EKG changes including T wave inversions, RBBB, prolonged QTc, although he continues to deny chest pain. He was given ASA and started on therapeutic heparin and statin. Heparin gtt stopped 03/30. Troponin 03/31 was 0.7. CA Cr 4.98, baseline appears to be around 1.5 in 04/2019. Likely due to sepsis and rhabdomyolysis. Improved with fluid resuscitation. - s/p fluid resuscitation in ED - continue strict I/O - Cr continues to improve, monitor BMP daily, likely near baseline at this time Hypertension Resume home medications. Allergy rash to quinapril. Has poorly tolerated beta blockers due to bradycardia. Type II DM - lantus, titrate up as appropriate - mild SSI - continue to monitor Bug Bites Diffuse rash on trunk and arms appears consistent with bed bugs vs scabies - improving with permethrin cream Hyperkalemia, improved 5.5 prior to fluid resuscitation. Likely 2/2 rhabdomyolysis. S/P calcium chloride in ED. No peaked T waves on EKG. K corrected with IVF resuscitation, CaCl. - continue to monitor daily BMP Leukocytosis, improving Initial WBC 16.4. Likely 2/2 sepsis. Had been trending downward but has now increased with acute symptoms. - continue to monitor Rhabdomyolysis, resolved Unknown down time, last known normal 2 days before admission. CK 1648, K 5.5, Cr 4.98. 2+ blood on UA although only 4-6 RBCs, may have myoglobin in urine upon admission. Altered Mental Status, resolved Mostly likely 2/2 sepsis. Initial consideration for ischemic stroke but patient is alert and non-focal on exam today. - sepsis treated with IVF and abx as above - no need for extensive stroke work up Bradycardia, resolved None on tele overnight 03/30. - discontinued coreg - continue tele - cardiology following, appreciate recs Dispo: LOS<48 hrs DVT ppx: held due to possible UGIB GI ppx: protonix Diet: soft, bland CC IVF: LR Addendum - Attending - Attending Attestation Date/Time: 04/05/20 8830 I personally evaluated the patient and discussed the management with Dr. Madison. I agree with the History, Examination, Assessment and Plan documented above with any addition or exceptions noted below.
[2020-04-03] MEDS: Amlodipine 5 MG TAB PO SCH ×2 (08:48→20:30)
[2020-04-03] MEDS: metroNIDAZOLE 500 MG in Premix Bag 1 BAG IVPB SCH (08:48)
[2020-04-03] MEDS: Pantoprazole 40 MG VIAL IVP SCH (08:48)
[2020-04-03] MEDS: Insulin Glargine 20 UNITS in Pre-Filled Syringe 1 EACH SC SCH (08:48)
[2020-04-03] MEDS: Lactated Ringer's 1,000 ML IV SCH ×3 (08:49→20:31)
[2020-04-03] MEDS: cefTRIAXone\\ROCEPHIN 1 GM in Sodium Chloride 0.9% 100 ML IVPB SCH (09:43)
--- NOTE | 2020-04-03 10:32 | PDOC.BPN ---
- Brief Progress Note Patient doing markedly better this AM. He is eating and hungry, alert and oriented and wants to get out of the hospital. His exam is unremarkable today and his abdomen soft. Cdiff colitis -continue vanc and flagyl for 14 days UGIB -continue BID PPI, space h/h NSTEMI -DAPT/ASA when able -statin DMII -increase insulin in light of increased PO PT eval and hopeful d/c tomorrow if tolerated full diet
[2020-04-03] MEDS: HumaLOG 300 UNITS/3 ML VIAL SC PRN ×2 (12:27→18:25)
[2020-04-03] MEDS ORDERED: hydrALAZINE 25 MG TAB PO SCH (12:30)
[2020-04-03] MEDS: Acetaminophen 325 MG TAB PO PRN (14:30)
[2020-04-03] MEDS: metroNIDAZOLE 500 MG TAB PO SCH ×2 (14:30→20:30)
[2020-04-03] MEDS: hydrALAZINE 25 MG TAB PO SCH (20:30)
[2020-04-03] MEDS: Atorvastatin Calcium 40 MG TAB PO SCH (20:30)
[2020-04-04] MEDS: Vancomycin HCl 25 MG/ML Oral PO SCH ×4 (02:50→21:17)
[2020-04-04] MEDS: Lactated Ringer's 1,000 ML IV SCH ×2 (02:51→11:15)
[2020-04-04 04:22] LABS: #Eosinphils 0.7 thou/uL (0.0-0.7); #Lymphocytes 2.1 thou/uL (1.20-3.40); #Monocytes 1.7 thou/uL (0.11-0.59); #Neutrophils 8.3 thou/uL (1.40-6.50); %Basophils 0.3 % (0.0-1.0); %Eosinophils 5.2 % (0.0-10.0); %Lymphocytes 16.2 % (21.0-51.0); %Monocytes 13.4 % (0.0-10.0); %Neutrophils 64.9 % (42.0-75.0); Mean Corpuscular Volume 93.5 fL (78.0-98.0); Mean Platelet Volume 7.9 fL (7.4-10.4); Platelet Count 250 thou/uL (130-400); RBC Distribution Width 12.5 % (11.5-14.5); Red Blood Cell (RBC) Count 3.68 mill/uL (4.70-6.10); White Blood Cell (WBC) Count 12.8 thou/uL (4.8-10.8)
[2020-04-04 04:41] LABS: ALT (SGPT) 16 U/L (8-55); AST (SGOT) 17 U/L (5-34); Albumin 2.2 g/dL (3.4-4.8); Alkaline Phosphatase 62 U/L (40-110); Anion Gap 11 mmol/L (10-20); BUN (Urea Nitrogen) 36 mg/dL (8.4-25.7); Bilirubin, Total 0.3 mg/dL (0.2-1.2); Calc. Creatinine Clearance 82 mL/min (70-130); Calcium 7.9 mg/dL (7.8-10.44); Carbon Dioxide 22 mmol/L (23-31); Chloride 107 mmol/L (98-107); Estimated GFR-MDRD 48; Globulin 2.8 g/dL (2.4-3.5); Glucose 128 mg/dL (83-110); Sodium 136 mmol/L (136-145)
[2020-04-04] MEDS: Levothyroxine Sodium 125 MCG TAB PO SCH (05:06)
--- NOTE | 2020-04-04 06:54 | PDOC.FM ---
- Subjective Subjective: Patient is doing well today. No acute concerns, no nausea or vomiting or abdominal pain. - Objective MAR Reviewed: Yes Vital Signs & Weight: Vital Signs (12 hours) Temp Pulse Resp BP BP Pulse Ox 04/04/20 04:00 98.1 F 62 18 152/61 H 95 04/03/20 20:30 155/70 H 04/03/20 20:00 98.1 F 64 18 155/70 H 95 Weight Admit Weight 118.841 kg Weight 128.423 kg Most Recent Monitor Data Heart Rate from ECG 67 NIBP 150/67 NIBP BP-Mean 94 Respiration from ECG 26 SpO2 98 I&O: 04/02/20 04/03/20 04/04/20 06:59 06:59 06:59 Intake Total 3125 1660 3490 Output Total 200 0 1150 Balance 2925 1660 2340 Result Diagrams: 04/04/20 03:23 04/04/20 03:23 Phys Exam - Physical Examination Constitutional: NAD HEENT: PERRLA, moist MMs Respiratory: no wheezing, clear to auscultation bilateral Cardiovascular: RRR, no rub 2/6 systolic ejection murmur Gastrointestinal: soft, non-tender, no distention, positive bowel sounds Musculoskeletal: no edema, pulses present Neurological: non-focal, normal sensation Psychiatric: normal affect, A&O x 3 Dx/Plan - Plan Plan: Vomiting Likely UGIB - CMP and CBC stable - monitor H/H for possible UGIB - Patient does not want EGD at this time - PO C diff therapy for 14 days - PO protonix at therapeutic dose - CT abd/pelvis without signs of SBO/ileus - monitor for signs of active bleeding UTI Previously sepsis due to UTI, but no longer meeting SIRS criteria. Appears stable. Urine cx with proteus that is sensitive to cephalosporins. - continue rocephin for now - will need 10 total days of abx therapy, to be completed on 04/05/20 C difficile colitis Colitis noted on imaging upon admission. Due to patient being found down and covered in stool, C diff toxin was checked and was positive. started abx on 03/27 , increased dose on 03/31 - oral vanc, flagyl Back pain Unknown etiology, no apparent flank tenderness. Likely chronic disc pathology. - pain management - PT/OT/rehab - XR lumbar and thoracic spine negative for acute fracture s/p fall -scheduled tylenol NSTEMI Troponin elevated at 1.75 on admission; was suspected most likely due to sepsis and decreased renal clearance, therapeutic lovenox administered in ED and ASA given on admission to the floor; continued to trend troponin overnight and continued to rise to 3.34 and then 4.92. He developed EKG changes including T wave inversions, RBBB, prolonged QTc, although he continues to deny chest pain. He was given ASA and started on therapeutic heparin and statin. Heparin gtt stopped 03/30. Troponin 03/31 was 0.7. CA Cr 4.98, baseline appears to be around 1.5 in 04/2019. Likely due to sepsis and rhabdomyolysis. Improved with fluid resuscitation. - s/p fluid resuscitation in ED - continue strict I/O - Cr continues to improve, monitor BMP daily, likely near baseline at this time Hypertension Resume home medications. Allergy rash to quinapril. Has poorly tolerated beta blockers due to bradycardia. Type II DM - lantus, titrate up as appropriate - mild SSI - continue to monitor Bug Bites Diffuse rash on trunk and arms appears consistent with bed bugs vs scabies - improving with permethrin cream Hyperkalemia, improved 5.5 prior to fluid resuscitation. Likely 2/2 rhabdomyolysis. S/P calcium chloride in ED. No peaked T waves on EKG. K corrected with IVF resuscitation, CaCl. - continue to monitor daily BMP Leukocytosis, improving Initial WBC 16.4. Likely 2/2 sepsis. Had been trending downward but has now increased with acute symptoms. - continue to monitor Rhabdomyolysis, resolved Unknown down time, last known normal 2 days before admission. CK 1648, K 5.5, Cr 4.98. 2+ blood on UA although only 4-6 RBCs, may have myoglobin in urine upon admission. Altered Mental Status, resolved Mostly likely 2/2 sepsis. Initial consideration for ischemic stroke but patient is alert and non-focal on exam today. - sepsis treated with IVF and abx as above - no need for extensive stroke work up Bradycardia, resolved None on tele overnight 03/30. - discontinued coreg - continue tele - cardiology following, appreciate recs Dispo: LOS<48 hrs, pending rehab placement DVT ppx: held due to possible UGIB GI ppx: protonix Diet: CC IVF: LR
[2020-04-04] MEDS: hydrALAZINE 25 MG TAB PO SCH ×3 (09:37→21:16)
[2020-04-04] MEDS: Amlodipine 5 MG TAB PO SCH ×2 (09:37→21:16)
[2020-04-04] MEDS: Cefdinir 300 MG CAP PO SCH ×2 (09:37→21:16)
[2020-04-04] MEDS: metroNIDAZOLE 500 MG TAB PO SCH ×3 (09:37→21:16)
[2020-04-04] MEDS: Insulin Glargine 20 UNITS in Pre-Filled Syringe 1 EACH SC SCH (09:42)
[2020-04-04] MEDS: HumaLOG 300 UNITS/3 ML VIAL SC PRN ×2 (11:08→17:49)
[2020-04-04] MEDS: Acetaminophen 325 MG TAB PO SCH ×2 (11:15→17:49)
--- NOTE | 2020-04-04 14:52 | PRG ---
DATE OF SERVICE: 04/04/2020 Mr. Vines is doing well today with no nausea, vomiting, or abdominal pain. He has considerably improved from what his initial description was on admission. He has been seen in consultation by the Cardiology service and they see no need for any intervention at this time for his aortic stenosis. This will be continued to be followed by them as an outpatient or with his vat cleaner of choice. We are awaiting placement at which time he can be discharged. Job ID: [id number]
[2020-04-04 16:36] LABS: Hemoglobin 11.6 g/dL (14.0-18.0)
[2020-04-04] MEDS: Atorvastatin Calcium 40 MG TAB PO SCH (21:16)
[2020-04-05] MEDS: Acetaminophen 325 MG TAB PO SCH ×4 (02:20→17:16)
[2020-04-05 04:14] LABS: #Basophils 0.1 thou/uL (0.0-0.2); #Eosinphils 0.6 thou/uL (0.0-0.7); #Lymphocytes 2.2 thou/uL (1.20-3.40); #Monocytes 1.8 thou/uL (0.11-0.59); #Neutrophils 10.4 thou/uL (1.40-6.50); %Basophils 0.6 % (0.0-1.0); %Lymphocytes 14.3 % (21.0-51.0); Hemoglobin 11.1 g/dL (14.0-18.0); Mean Corpuscular HGB CONC 32.5 g/dL (32.0-36.0); Mean Corpuscular Hemoglobin 30.5 pg (27.0-31.0); Mean Corpuscular Volume 93.9 fL (78.0-98.0); Mean Platelet Volume 7.8 fL (7.4-10.4); Platelet Count 245 thou/uL (130-400); RBC Distribution Width 12.7 % (11.5-14.5); Red Blood Cell (RBC) Count 3.65 mill/uL (4.70-6.10)
[2020-04-05 04:59] LABS: ALT (SGPT) 14 U/L (8-55); AST (SGOT) 24 U/L (5-34); Albumin 2.1 g/dL (3.4-4.8); Alkaline Phosphatase 64 U/L (40-110); Anion Gap 12 mmol/L (10-20); BUN (Urea Nitrogen) 30 mg/dL (8.4-25.7); Bilirubin, Total 0.2 mg/dL (0.2-1.2); Calc. Creatinine Clearance 78 mL/min (70-130); Calcium 7.9 mg/dL (7.8-10.44); Carbon Dioxide 21 mmol/L (23-31); Chloride 107 mmol/L (98-107); Estimated GFR-MDRD 46; Globulin 3.3 g/dL (2.4-3.5); Glucose 140 mg/dL (83-110); Potassium 4.5 mmol/L (3.5-5.1); Protein, Total 5.4 g/dL (5.8-8.1); Sodium 135 mmol/L (136-145)
[2020-04-05] MEDS: Levothyroxine Sodium 125 MCG TAB PO SCH (05:20)
[2020-04-05] MEDS: Vancomycin HCl 25 MG/ML Oral PO SCH ×4 (05:20→21:35)
--- NOTE | 2020-04-05 05:49 | PDOC.FM ---
- Subjective Subjective: Patient has no acute concerns except for mild fatigue. He reports no abdominal pain, dizziness, lightheadedness, SOB, CP and improving back pain. - Objective Vital Signs & Weight: Vital Signs (12 hours) Temp Pulse Resp BP Pulse Ox 04/05/20 05:10 97.8 F 59 L 18 134/61 92 L 04/05/20 01:30 97.8 F 65 18 126/60 92 L 04/05/20 01:18 94 L 04/04/20 21:16 70 04/04/20 19:25 98.2 F 70 18 141/66 H 94 L Weight Admit Weight 118.841 kg Weight 129.331 kg Most Recent Monitor Data Heart Rate from ECG 67 NIBP 150/67 NIBP BP-Mean 94 Respiration from ECG 26 SpO2 98 I&O: 04/03/20 04/04/20 04/05/20 06:59 06:59 06:59 Intake Total 1660 3490 600 Output Total 0 1150 Balance 1660 2340 600 Result Diagrams: 04/05/20 03:25 04/05/20 03:25 Phys Exam - Physical Examination Constitutional: NAD HEENT: moist MMs, sclera anicteric Neck: no JVD, supple, full ROM Respiratory: no wheezing, no rales, no rhonchi, clear to auscultation bilateral Cardiovascular: RRR, no rub 2/6 systolic ejection murmur Gastrointestinal: soft, non-tender, no distention, positive bowel sounds Musculoskeletal: no edema, pulses present Neurological: non-focal, moves all 4 limbs Lymphatic: no nodes Psychiatric: normal affect, A&O x 3 Dx/Plan - Plan Plan: C difficile colitis Colitis noted on imaging upon admission. Due to patient being found down and covered in stool, C diff toxin was checked and was positive. started abx on 03/27 , increased dose on 03/31 - oral vanc, flagyl - Will do 14 days of therapy from 03/31 since that was determined to be the effective dose Back pain Unknown etiology, no apparent flank tenderness. Likely chronic disc pathology. - pain management - PT/OT/rehab - XR lumbar and thoracic spine negative for acute fracture s/p fall -scheduled tylenol Hypertension Resume home medications. Allergy rash to quinapril. Has poorly tolerated beta blockers due to bradycardia. Type II DM - lantus, titrate up as appropriate - mild SSI - continue to monitor Leukocytosis - Likely 2/2 C diff infection, stable on current abx - continue to monitor CA, improving Cr 4.98, baseline appears to be around 1.5 in 04/2019. Likely due to sepsis and rhabdomyolysis. Improved with fluid resuscitation. - s/p fluid resuscitation in ED - continue strict I/O - Cr continues to improve, monitor BMP daily, likely near baseline at this time Vomiting, improving Likely UGIB - CMP and CBC stable - monitor H/H for possible UGIB - Patient does not want EGD at this time - PO C diff therapy for 14 days - PO protonix at therapeutic dose - CT abd/pelvis without signs of SBO/ileus Bug Bites, improving Diffuse rash on trunk and arms appears consistent with bed bugs vs scabies - improving with permethrin cream Hyperkalemia, improved 5.5 prior to fluid resuscitation. Likely 2/2 rhabdomyolysis. S/P calcium chloride in ED. No peaked T waves on EKG. K corrected with IVF resuscitation, CaCl. - continue to monitor daily BMP Leukocytosis, improving Initial WBC 16.4. Likely 2/2 sepsis. Had been trending downward but has now increased with acute symptoms. - continue to monitor Rhabdomyolysis, resolved Unknown down time, last known normal 2 days before admission. CK 1648, K 5.5, Cr 4.98. 2+ blood on UA although only 4-6 RBCs, may have myoglobin in urine upon admission. Altered Mental Status, resolved Mostly likely 2/2 sepsis. Initial consideration for ischemic stroke but patient is alert and non-focal on exam today. - sepsis treated with IVF and abx as above - no need for extensive stroke work up Bradycardia, resolved None on tele overnight 03/30. - discontinued coreg - continue tele - cardiology following, appreciate recs UTI, resolved Previously sepsis due to UTI, but no longer meeting SIRS criteria. Appears stable. Urine cx with proteus that is sensitive to cephalosporins. - continue rocephin for now - will need 10 total days of abx therapy, to be completed on 04/05/20 NSTEMI, resolved Troponin elevated at 1.75 on admission; was suspected most likely due to sepsis and decreased renal clearance, therapeutic lovenox administered in ED and ASA given on admission to the floor; continued to trend troponin overnight and continued to rise to 3.34 and then 4.92. He developed EKG changes including T wave inversions, RBBB, prolonged QTc, although he continues to deny chest pain. He was given ASA and started on therapeutic heparin and statin. Heparin gtt stopped 03/30. Troponin 03/31 was 0.7. Dispo: LOS<48 hrs, pending rehab placement DVT ppx: held due to possible UGIB GI ppx: protonix Diet: CC IVF: SL
[2020-04-05] MEDS: Amlodipine 5 MG TAB PO SCH ×2 (08:55→21:35)
[2020-04-05] MEDS: Cefdinir 300 MG CAP PO SCH ×2 (08:55→21:36)
[2020-04-05] MEDS: Insulin Glargine 20 UNITS in Pre-Filled Syringe 1 EACH SC SCH (08:56)
[2020-04-05] MEDS: hydrALAZINE 25 MG TAB PO SCH ×3 (08:56→21:36)
[2020-04-05] MEDS: metroNIDAZOLE 500 MG TAB PO SCH ×3 (08:56→21:36)
[2020-04-05 11:15] VITALS: BMI 37.6
[2020-04-05] MEDS: HumaLOG 300 UNITS/3 ML VIAL SC PRN ×2 (12:07→17:16)
--- NOTE | 2020-04-05 14:00 | PRG ---
DATE OF SERVICE: 04/05/2020 Mr. Vines is resting quietly, in no distress. We are still awaiting placement. Otherwise, he is clinically stable. Job ID: [id number]
[2020-04-05] MEDS ORDERED: Furosemide 40 MG/4 ML VIAL SLOW IVP SCH (17:00)
[2020-04-05] MEDS: Atorvastatin Calcium 40 MG TAB PO SCH (21:36)
[2020-04-06] MEDS: Vancomycin HCl 25 MG/ML Oral PO SCH ×4 (03:04→21:52)
[2020-04-06] MEDS: Acetaminophen 325 MG TAB PO SCH ×4 (03:05→18:04)
--- NOTE | 2020-04-06 05:41 | PDOC.FM ---
- Subjective Subjective: Patient reports that he is doing well. He feels better than yesterday. He mentioned RUE swelling that has been going on for 4-5 days. His arm is not painful. It is the same arm as his IV. - Objective MAR Reviewed: Yes Vital Signs & Weight: Vital Signs (12 hours) Temp Pulse Resp BP BP Pulse Ox 04/06/20 04:00 98.4 F 64 23 H 122/59 L 93 L 04/05/20 21:36 64 102/65 04/05/20 21:35 64 102/65 04/05/20 20:00 98.2 F 64 20 102/65 92 L Weight Admit Weight 118.841 kg Weight 129.331 kg Most Recent Monitor Data Heart Rate from ECG 67 NIBP 150/67 NIBP BP-Mean 94 Respiration from ECG 26 SpO2 98 I&O: 04/04/20 04/05/20 04/06/20 06:59 06:59 06:59 Intake Total 3490 1080 910 Output Total 1150 850 Balance 2340 230 910 Result Diagrams: 04/05/20 03:25 04/05/20 03:25 Phys Exam - Physical Examination Constitutional: NAD HEENT: moist MMs, sclera anicteric Neck: no nodes, no JVD Respiratory: no wheezing, no rales, no rhonchi, clear to auscultation bilateral Cardiovascular: RRR, no rub 2/6 systolic ejection murmur Gastrointestinal: soft, non-tender, no distention, positive bowel sounds Musculoskeletal: no edema, pulses present Neurological: non-focal, moves all 4 limbs Psychiatric: normal affect Dx/Plan - Plan Plan: C difficile colitis Colitis noted on imaging upon admission. Due to patient being found down and covered in stool, C diff toxin was checked and was positive. started abx on 03/27 , increased dose on 03/31 - oral vanc, flagyl - Will do 14 days of therapy from 03/31 since that was determined to be the effective dose RUE edema - Venous doppler U/S - Concern for DVT Back pain Unknown etiology, no apparent flank tenderness. Likely chronic disc pathology. - pain management - PT/OT/rehab - XR lumbar and thoracic spine negative for acute fracture s/p fall -scheduled tylenol Hypertension Resume home medications. Allergy rash to quinapril. Has poorly tolerated beta blockers due to bradycardia. Type II DM - lantus, titrate up as appropriate - mild SSI - continue to monitor CA, improving Cr 4.98, baseline appears to be around 1.5 in 04/2019. Likely due to sepsis and rhabdomyolysis. Improved with fluid resuscitation. - s/p fluid resuscitation in ED - continue strict I/O - Cr continues to improve, monitor BMP daily, likely near baseline at this time Vomiting, improving Likely UGIB - CMP and CBC stable - monitor H/H for possible UGIB - Patient does not want EGD at this time - PO C diff therapy for 14 days - PO protonix at therapeutic dose - CT abd/pelvis without signs of SBO/ileus Bug Bites, improving Diffuse rash on trunk and arms appears consistent with bed bugs vs scabies - improving with permethrin cream Hyperkalemia, improved 5.5 prior to fluid resuscitation. Likely 2/2 rhabdomyolysis. S/P calcium chloride in ED. No peaked T waves on EKG. K corrected with IVF resuscitation, CaCl. - continue to monitor daily BMP Leukocytosis, improving Initial WBC 16.4. Likely 2/2 sepsis. Had been trending downward but has now increased with acute symptoms. - continue to monitor - Likely 2/2 C diff infection, stable on current abx Rhabdomyolysis, resolved Unknown down time, last known normal 2 days before admission. CK 1648, K 5.5, Cr 4.98. 2+ blood on UA although only 4-6 RBCs, may have myoglobin in urine upon admission. Altered Mental Status, resolved Mostly likely 2/2 sepsis. Initial consideration for ischemic stroke but patient is alert and non-focal on exam today. - sepsis treated with IVF and abx as above - no need for extensive stroke work up Bradycardia, resolved None on tele overnight 03/30. - discontinued coreg - continue tele - cardiology following, appreciate recs UTI, resolved Previously sepsis due to UTI, but no longer meeting SIRS criteria. Appears stable. Urine cx with proteus that is sensitive to cephalosporins. - Rocephin/Omnicef therapy completed 04/05, 10 d total tx NSTEMI, resolved Troponin elevated at 1.75 on admission; was suspected most likely due to sepsis and decreased renal clearance, therapeutic lovenox administered in ED and ASA given on admission to the floor; continued to trend troponin overnight and continued to rise to 3.34 and then 4.92. He developed EKG changes including T wave inversions, RBBB, prolonged QTc, although he continues to deny chest pain. He was given ASA and started on therapeutic heparin and statin. Heparin gtt stopped 03/30. Troponin 03/31 was 0.7. Dispo: LOS<48 hrs, pending rehab placement DVT ppx: held due to possible UGIB GI ppx: protonix Diet: CC IVF: SL
[2020-04-06] MEDS: Levothyroxine Sodium 125 MCG TAB PO SCH (05:56)
[2020-04-06] MEDS ORDERED: Enoxaparin Sodium 40 MG/0.4 ML SYRINGE SC SCH (09:45)
[2020-04-06] MEDS: metroNIDAZOLE 500 MG TAB PO SCH ×3 (10:27→21:31)
[2020-04-06] MEDS: Furosemide 40 MG TAB PO SCH (10:28)
[2020-04-06] MEDS: Insulin Glargine 20 UNITS in Pre-Filled Syringe 1 EACH SC SCH (10:28)
[2020-04-06] MEDS: Amlodipine 5 MG TAB PO SCH ×2 (10:28→21:30)
[2020-04-06] MEDS: hydrALAZINE 25 MG TAB PO SCH ×3 (10:28→21:31)
--- NOTE | 2020-04-06 10:48 | ULT ---
Right upper extremity venous Doppler ultrasound: 04/06/2020 COMPARISON: None HISTORY: Swelling, assess for DVT TECHNIQUE: Multiplanar grayscale sonographic imaging of the venous structures of the right upper extr emity obtained with color flow and spectral analysis FINDINGS: The right jugular vein, subclavian vein, axillary vein, brachial vein, basilic vein, radial vein, and ulnar vein are patent. No evidence for deep venous thrombosis. Of note, the cephalic vein is expanded and filled with echogenic thrombus. This is consistent with decker perficial venous thrombosis. There is adjacent edema within the subcutaneous fat. IMPRESSION: Superficial venous thrombosis involving the right cephalic vein. No evidence for deep taya ous thrombosis.
--- NOTE | 2020-04-06 14:50 | PRG ---
DATE OF SERVICE: 04/06/2020 ADDENDUM: This is an addendum to the note of Dr. Jamir Madison. Mr. Vines is resting quietly in bed, in no distress. He had developed some slight swelling in his right arm proximal to the site of an IV placement. Subsequent venous ultrasound does show a superficial phlebitis, which will be treated conservatively. Otherwise, awaiting placement. Job ID: [id number]
[2020-04-06] MEDS: Atorvastatin Calcium 40 MG TAB PO SCH (21:30)
[2020-04-07] MEDS: Acetaminophen 325 MG TAB PO SCH ×4 (01:01→17:19)
[2020-04-07] MEDS: Vancomycin HCl 25 MG/ML Oral PO SCH ×3 (03:57→15:37)
[2020-04-07] MEDS: Levothyroxine Sodium 125 MCG TAB PO SCH (06:02)
--- NOTE | 2020-04-07 06:17 | PDOC.FM ---
- Subjective Subjective: Patient reports no acute concerns at this time. His RUE swelling is improving but still persists. He thinks the heat therapy is helping. - Objective MAR Reviewed: Yes Vital Signs & Weight: Vital Signs (12 hours) Temp Pulse Resp BP BP Pulse Ox 04/07/20 04:03 97.3 F L 61 14 144/67 H 93 L 04/06/20 21:30 71 151/69 H 04/06/20 20:00 98.0 F 70 18 151/69 H 93 L Weight Admit Weight 118.841 kg Weight 129.331 kg Most Recent Monitor Data Heart Rate from ECG 67 NIBP 150/67 NIBP BP-Mean 94 Respiration from ECG 26 SpO2 98 I&O: 04/05/20 04/06/20 04/07/20 06:59 06:59 06:59 Intake Total 7490 497 6423 Output Total 850 400 Balance 230 910 900 Result Diagrams: 04/05/20 03:25 04/05/20 03:25 Phys Exam - Physical Examination Constitutional: NAD HEENT: moist MMs, sclera anicteric Neck: no nodes, no JVD Respiratory: no wheezing, no rales, no rhonchi Cardiovascular: RRR, no rub 2/6 murmur Gastrointestinal: soft, non-tender, no distention Musculoskeletal: no edema, pulses present Neurological: non-focal, moves all 4 limbs Psychiatric: normal affect, A&O x 3 Dx/Plan - Plan Plan: C difficile colitis Colitis noted on imaging upon admission. Due to patient being found down and covered in stool, C diff toxin was checked and was positive. started abx on 03/27 , increased dose on 03/31 - oral vanc, flagyl - Will do 14 days of therapy from 03/31 since that was determined to be the effective dose RUE edema - Venous doppler U/S negative for DVT, shows superficial cephalic thrombus Back pain Unknown etiology, no apparent flank tenderness. Likely chronic disc pathology. - pain management - PT/OT/rehab - XR lumbar and thoracic spine negative for acute fracture s/p fall -scheduled tylenol Hypertension Resume home medications. Allergy rash to quinapril. Has poorly tolerated beta blockers due to bradycardia. Type II DM - lantus, titrate up as appropriate - mild SSI - continue to monitor CA, improving Cr 4.98, baseline appears to be around 1.5 in 04/2019. Likely due to sepsis and rhabdomyolysis. Improved with fluid resuscitation. - s/p fluid resuscitation in ED - continue strict I/O - Cr continues to improve, monitor BMP daily, likely near baseline at this time Vomiting, improving Likely UGIB - CMP and CBC stable - monitor H/H for possible UGIB - Patient does not want EGD at this time - PO C diff therapy for 14 days - PO protonix at therapeutic dose - CT abd/pelvis without signs of SBO/ileus Bug Bites, improving Diffuse rash on trunk and arms appears consistent with bed bugs vs scabies - improving with permethrin cream Hyperkalemia, improved 5.5 prior to fluid resuscitation. Likely 2/2 rhabdomyolysis. S/P calcium chloride in ED. No peaked T waves on EKG. K corrected with IVF resuscitation, CaCl. - continue to monitor daily BMP Leukocytosis, improving Initial WBC 16.4. Likely 2/2 sepsis. Had been trending downward but has now increased with acute symptoms. - continue to monitor - Likely 2/2 C diff infection, stable on current abx Rhabdomyolysis, resolved Unknown down time, last known normal 2 days before admission. CK 1648, K 5.5, Cr 4.98. 2+ blood on UA although only 4-6 RBCs, may have myoglobin in urine upon admission. Altered Mental Status, resolved Mostly likely 2/2 sepsis. Initial consideration for ischemic stroke but patient is alert and non-focal on exam today. - sepsis treated with IVF and abx as above - no need for extensive stroke work up Bradycardia, resolved None on tele overnight 03/30. - discontinued coreg - continue tele - cardiology following, appreciate recs UTI, resolved Previously sepsis due to UTI, but no longer meeting SIRS criteria. Appears stable. Urine cx with proteus that is sensitive to cephalosporins. - Rocephin/Omnicef therapy completed 04/05, 10 d total tx NSTEMI, resolved Troponin elevated at 1.75 on admission; was suspected most likely due to sepsis and decreased renal clearance, therapeutic lovenox administered in ED and ASA given on admission to the floor; continued to trend troponin overnight and continued to rise to 3.34 and then 4.92. He developed EKG changes including T wave inversions, RBBB, prolonged QTc, although he continues to deny chest pain. He was given ASA and started on therapeutic heparin and statin. Heparin gtt stopped 03/30. Troponin 03/31 was 0.7. Patient is refusing labs at this time. Given stability of labs over the last week, agreed to d/c labs for now unless there are acute changes. Dispo: LOS<48 hrs, pending rehab placement DVT ppx: held due to possible UGIB GI ppx: protonix Diet: CC IVF: SL
[2020-04-07] MEDS: Furosemide 40 MG TAB PO SCH (08:49)
[2020-04-07] MEDS: metroNIDAZOLE 500 MG TAB PO SCH ×2 (08:49→15:37)
[2020-04-07] MEDS: Amlodipine 5 MG TAB PO SCH (08:49)
[2020-04-07] MEDS: hydrALAZINE 25 MG TAB PO SCH ×2 (08:49→15:37)
[2020-04-07] MEDS ORDERED: Enoxaparin Sodium 40 MG/0.4 ML SYRINGE SC SCH (09:00)
[2020-04-07] MEDS ORDERED: Insulin Glargine 22 UNITS in Pre-Filled Syringe 1 EACH SC SCH (09:00)
[2020-04-07] MEDS: HumaLOG 300 UNITS/3 ML VIAL SC PRN ×2 (12:25→17:19)
--- NOTE | 2020-04-07 13:39 | PRG ---
DATE OF SERVICE: 04/07/2020 Mr. Vines is sitting in bed, cheerful, alert, in no distress. We are still awaiting placement. Job ID: [id number]
[2020-04-07 15:47] VITALS: BP 139/63; TEMP 98.2
--- NOTE | 2020-04-08 09:29 | DIS ---
DATE OF ADMISSION: 03/26/2020 DATE OF DISCHARGE: 04/07/2020 RESIDENT: Jamir Madison MD ADMITTING ATTENDING: Anuj Hooper MD DISCHARGE ATTENDING: Leo Petit MD CONSULTS: 1. GI, Dr. Alonzo. 2. Cardiology, Dr. Trevino. PROCEDURES: The patient had an NG tube placed when concern for hematemesis. PRIMARY DIAGNOSIS: Non-ST elevation myocardial infarction type 2. SECONDARY DIAGNOSES: Sepsis due to urinary tract infection, bradycardia, encephalopathy likely due to sepsis, rhabdomyolysis, leukocytosis, hyperkalemia , bug bites, vomiting, acute kidney injury, type 2 diabetes, hypertension, back pain, superficial right upper extremity thrombosis, and Clostridium difficile colitis. DISCHARGE MEDICATIONS: 1. 5 mg amlodipine p.o. b.i.d. 2. 81 mg p.o. aspirin daily. 3. 40 mg atorvastatin p.o. daily. 4. 40 mg furosemide p.o. daily. 5. 50 mg hydralazine p.o. t.i.d. 6. 22 units insulin glargine as subcutaneous q.a.m. 7. 125 mcg levothyroxine sodium p.o. daily. 8. 500 mg metronidazole p.o. t.i.d. for 7 days. 9. 40 mg pantoprazole b.i.d. p.o. 10. 250 mg vancomycin p.o. q.i.d. for 7 days. DISCONTINUED MEDICATIONS: 1. Insulin glargine 35 units. 2. Pantoprazole 20 mg daily. 3. Simvastatin 20 mg daily. 4. Humalog 5 units subcutaneous three times a day with meals. HISTORY OF PRESENT ILLNESS AND HOSPITAL COURSE: Mr. Vines is a 74-year-old male with past medical historyof type 2 diabetes, hypertension, and CAD with past surgical historyof left BKA, who was brought to our facility by EMS after being found by his livestock caretaker unresponsive on his floor home and covered in his own stool. His initial workup was significant for altered mental status, rhabdomyolysis with CA, hyperkalemia, sepsis due to UTI, and elevated troponin. He was given vancomycin and Zosyn in the ED for broad-spectrum coverage and switched to renally dosed vancomycin and cefepime upon admission due to diabetes and pseudomonal risk factor. After admission to the floor, his troponin continued to rise from 1.7 to 4.9. EKG showed no ST elevation or any T-wave inversions in leads I and V2 through V6. He denied any chest pain at this time. He was started on therapeutic heparin and Cardiology was consulted. He recommended conservative/medical management for NSTEMI. We continued to treat him with IV fluids for rhabdomyolysis, and CA, which rapidly improved. He was tested for C difficile on admission, which was confirmed and treatment with oral vancomycin was started on hospital day 2. Urine culture revealed Proteus mirabilis as pansensitive and he was switched to Rocephin. He was started on beta-franco for his hypertension and NSTEMI and became bradycardic, so it was stopped. On 03/30, heparin drip was stopped, and he had clinically improved with regard to his presenting condition and was pending placement. On 03/31, he was found to have altered level of alertness and was vomiting dark/black liquid. GI was consulted due to concern for GI bleed after hematemesis and his oral vancomycin was increased and Flagyl was added 2/2 C diff colitis. An NG tube was placed. CT abdomen and pelvis revealed improving colitis without signs of ileus or small-bowel obstruction. He continued to be altered with a GCS of 9 and he was transferred from tele to the ICU. His H and H remained stable. He has soon returned to his baseline level of alertness and responsiveness. Dr. Alonzo had a discussion with the patient regarding EGD. The patient told Dr. Alonzo that he did not want EGD unless it was emergent. EGD was not performed during this hospital admission. The patient was stable the rest of his hospital stay and was discharged to rehab. This patient had a prolonged hospital stay due to finding placement. DISPOSITION: Stable. DISCHARGE INSTRUCTIONS: 1. Location: Inpatient therapy. 2. Diet: Consistent carb, heart healthy. 3. Activity: As tolerated, work with therapy. 4. Followup: The patient is to follow up with his PCP within 2 weeks. Specialist did not report need for followup at this time. Job ID: [id number] [facility]
== END 2020-04-07 18:30 | DRG 871 ==
LOC: ERS 12:08 → 2NO 18:19 → IMCU/EMU 03-31 16:55 → 2NO 04-02 15:42
PROVIDERS: ADMIT Family Medicine; ATTEND Family Medicine
DX: A41.89 Other specified sepsis (principal); I21.A1 Myocardial infarction type 2; R40.2342 Coma scale, best motor response, flexion withdrawal, at arrival to emergency department; G93.41 Metabolic encephalopathy; M62.82 Rhabdomyolysis; N17.9 Acute kidney failure, unspecified; N39.0 Urinary tract infection, site not specified; A04.72 Enterocolitis due to Clostridium difficile, not specified as recurrent; Z20.828 Contact with and (suspected) exposure to other viral communicable diseases; E11.22 Type 2 diabetes mellitus with diabetic chronic kidney disease; N18.3 Chronic kidney disease, stage 3 (moderate); I12.9 Hypertensive chronic kidney disease with stage 1 through stage 4 chronic kidney disease, or unspecified chronic kidney disease; R40.2132 Coma scale, eyes open, to sound, at arrival to emergency department; R40.2242 Coma scale, best verbal response, confused conversation, at arrival to emergency department; I25.10 Atherosclerotic heart disease of native coronary artery without angina pectoris; K52.9 Noninfective gastroenteritis and colitis, unspecified; E87.5 Hyperkalemia; E11.51 Type 2 diabetes mellitus with diabetic peripheral angiopathy without gangrene; W57.XXXA Bitten or stung by nonvenomous insect and other nonvenomous arthropods, initial encounter; R21 Rash and other nonspecific skin eruption; R40.2423 Glasgow coma scale score 9-12, at hospital admission; Z89.512 Acquired absence of left leg below knee; Z79.899 Other long term (current) drug therapy; Z79.4 Long term (current) use of insulin; Z79.82 Long term (current) use of aspirin; Z79.890 Hormone replacement therapy
CPT/HCPCS: 36415; 36416; 36600; 51701; 70450; 71045; 72072; 72100; 72125; 74018; 74176; 74177; 80048; 80053; 80202; 80306; 80307; 81003; 81015; 82140; 82330; 82550; 82553; 82803; 83605; 83690; 83735; 84145; 84443; 84484; 85014; 85018; 85025; 85049; 85610; 85730; 87040; 87077; 87086; 87186; 87324; 87449; 87493; 93005; 93010; 93306; 96361; 96365; 96372; 96375; C9113; J0360; J0692; J0696; J1644; J1650; J1815; J1940; J2270; J2543; J2550; J3370; J3490; Q0162; Q9967; U0002